=== PATIENT | female | born 1970 | race Caucasian/White ===

== ENCOUNTER 2018-07-07 17:24 | Observation (INO) | payer BC, OTHER ==
[2018-07-07] MEDS ORDERED: fentaNYL 100 MCG/2 ML VIAL IVP STA ×3 (17:45→22:03)
[2018-07-07] MEDS ORDERED: ONDANSETRON 4 MG/2 ML VIAL IVP STA ×2 (17:46→20:11)
[2018-07-07] MEDS ORDERED: SODIUM CHLORIDE 0.9% 1,000 ML IV ONE ×2 (17:47→22:30)
--- NOTE | 2018-07-07 17:51 | ED Physician Documentation ---
PD HPI ABD PAIN - Stated complaint Stated Complaint: AB PX - Chief complaint Chief Complaint: Abd Pain - History obtained from History obtained from: Patient, Family - History of Present Illness Timing - onset: How many months ago (1) Timing - duration: Months (1) Timing - details: Gradual onset Pain level max: 8 Pain level now: 8 Quality: Cramping, Aching, Pain Location: Other (lower abdominal pain) Radiation: Other (non-radiating) Improved by: Other (nothing) Worsened by: Moving, Palpation Associated symptoms: Nausea. No: Vomiting, Hematemesis, Diarrhea, Constipation, Melena, Hematochezia, Dysuria, Hematuria, Vaginal bleeding, Vaginal dc Similar symptoms before: Has not had sx before Recently seen: Clinic (clinic in [place] yesterday. normal blood work.) Review of Systems Ten Systems: 10 systems reviewed and negative Constitutional: denies: Fever, Chills Throat: denies: Sore throat Respiratory: denies: Cough GI: denies: Nausea, Vomiting, Diarrhea : denies: Dysuria Skin: denies: Rash Musculoskeletal: denies: Neck pain, Back pain Neurologic: reports: Generalized weakness. denies: Headache PD PAST MEDICAL HISTORY - Past Medical History Past Medical History: No - Past Surgical History Past Surgical History: Yes General: Appendectomy - Allergies Allergies/Adverse Reactions: Allergies Allergy/AdvReac Type Severity Reaction Status Date / Time acetaminophen [From Percocet] Allergy Rash Verified 07/07/18 17:32 amoxicillin Allergy Rash Verified 07/07/18 17:32 clindamycin Allergy Rash Verified 07/07/18 17:32 diphenhydramine Allergy Hives Verified 07/07/18 17:32 [From Benadryl] oxycodone [From Percocet] Allergy Rash Verified 07/07/18 17:32 Penicillins Allergy Rash Verified 07/07/18 17:32 - Living Situation Living Situation: reports: With family Living Arrangement: reports: At home - Social History Does the pt smoke?: No Does the pt have substance abuse?: No PD ED PE NORMAL - Vitals Vital signs reviewed: Yes - General General: Alert and oriented X 3, Well developed/nourished, Other (Curled on her left side, appears in pain) - HEENT HEENT: PERRL, Moist mucous membranes - Neck Neck: Supple, no meningeal sign - Cardiac Cardiac: RRR, Strong equal pulses - Respiratory Respiratory: No respiratory distress, Clear bilaterally - Abdomen Abdomen: Soft, Non distended, Other (Diffusely tender palpation lower abdomen) - Back Back: No spinal TTP - Derm Derm: Warm and dry - Extremities Extremities: No edema - Neuro Neuro: Alert and oriented X 3 - Psych Psych: Normal mood, Normal affect Results - Vitals Vitals: Vital Signs - 24 hr 07/07/18 07/07/18 07/07/18 17:32 17:55 19:00 Temperature 36.8 C Heart Rate 68 61 59 L Respiratory 16 16 18 Rate Blood Pressure 107/65 103/56 L 109/63 O2 Saturation 100 100 100 07/07/18 07/07/18 20:20 22:11 Temperature Heart Rate 61 57 L Respiratory 16 18 Rate Blood Pressure 95/54 L 98/44 L O2 Saturation 100 100 Oxygen O2 Source Room air - Labs Labs: Laboratory Tests 07/07/18 07/07/18 07/07/18 17:45 17:45 17:45 WBC 8.1 RBC 4.30 Hgb 13.4 Hct 39.9 MCV 92.8 MCH 31.1 H MCHC 33.5 RDW 13.8 Plt Count 206 MPV 9.0 Neut # (Auto) 4.8 Lymph # (Auto) 2.6 [place] # (Auto) 0.5 Eos # (Auto) 0.1 Baso # (Auto) 0.1 Absolute Nucleated RBC 0.01 Nucleated RBC % 0.1 Sodium 137 Potassium 4.1 Chloride 103 Carbon Dioxide 28 Anion Gap 6.0 BUN 15 Creatinine 0.9 Estimated GFR (MDRD) 67 L Glucose 93 Calcium 9.1 Total Bilirubin 0.6 AST 23 ALT 17 Alkaline Phosphatase 35 L Total Protein 5.9 L Albumin 3.7 Globulin 2.2 Albumin/Globulin Ratio 1.7 Lipase 45 Serum HCG, Qual NEGATIVE Urine Color Urine Clarity Urine pH Ur Specific [place] Urine Protein Urine Glucose (UA) Urine Ketones Urine Occult Blood Urine Nitrite Urine Bilirubin Urine Urobilinogen Ur Leukocyte Esterase Urine RBC Urine WBC Ur Squamous Epith Cells Urine Bacteria Ur Microscopic Review Urine Culture Comments 07/07/18 07/07/18 18:50 20:59 WBC RBC Hgb 12.4 Hct 37.1 MCV MCH MCHC RDW Plt Count MPV Neut # (Auto) Lymph # (Auto) [place] # (Auto) Eos # (Auto) Baso # (Auto) Absolute Nucleated RBC Nucleated RBC % Sodium Potassium Chloride Carbon Dioxide Anion Gap BUN Creatinine Estimated GFR (MDRD) Glucose Calcium Total Bilirubin AST ALT Alkaline Phosphatase Total Protein Albumin Globulin Albumin/Globulin Ratio Lipase Serum HCG, Qual Urine Color YELLOW Urine Clarity CLEAR Urine pH 7.0 Ur Specific [place] <=1.005 Urine Protein NEGATIVE Urine Glucose (UA) NEGATIVE Urine Ketones NEGATIVE Urine Occult Blood NEGATIVE Urine Nitrite NEGATIVE Urine Bilirubin NEGATIVE Urine Urobilinogen 0.2 (NORMAL) Ur Leukocyte Esterase SMALL H Urine RBC 0-5 Urine WBC 11-25 H Ur Squamous Epith Cells FEW Squamous Urine Bacteria Many H Ur Microscopic Review INDICATED Urine Culture Comments INDICATED - Rads (name of study) CT abd/pelvis Radiology: Prelim report reviewed, EMP read contemporaneously, See rad report (Small hemoperitoneum seen in the posterior cul-de-sac and bilateral adnexal regions. This could be from a ruptured ovarian cyst. Correlate clinically. Dominant follicle in the left ovary measuring 1.5 cm. ) pelvic US Radiology: Prelim report reviewed, EMP read contemporaneously, See rad report (1.5 cm hemorrhagic left ovarian cyst. Small amount of complex fluid in the cul-de-sac. Arterial and venous blood flow are present to the ovaries bilaterally. ) PD MEDICAL DECISION MAKING - ED course Complexity details: reviewed results, re-evaluated patient, considered differential, d/w patient, d/w family, d/w [facility] consultant ED course: 47-year-old female presents to the emergency department with a hemorrhagic ovarian cyst and hemoperitoneum. Hemoglobin dropped from 13.4 to 12.4 on repeat blood draw. A gram of tranexamic acid was given. Pain was very difficult to control in the emergency department. Discussed the case with Dr. Noble, gynecology on-call who will place the patient observation for repeat H&H in the morning and pain control overnight. This document was made in part using voice recognition software. While efforts are made to proofread this document, sound alike and grammatical errors may occur. Departure - Departure Disposition: ED Place in Observation Clinical Impression: Hemorrhagic cyst of left ovary, Hemoperitoneum Condition: Stable
[2018-07-07] MEDS ORDERED: IOPAMIDOL-300 100 ML VIAL ONE (17:55)
[2018-07-07 17:58] LABS: BASOPHILS # (AUTO) 0.1 10^3/uL (0.0-0.1); BASOPHILS % (AUTO) 0.7 %; EOSINOPHILS # (AUTO) 0.1 10^3/uL (0.0-0.7); EOSINOPHILS % (AUTO) 1.6 %; HGB - HEMOGLOBIN 13.4 g/dL (12.0-16.0); LYMPHOCYTES # (AUTO) 2.6 10^3/uL (1.5-3.5); LYMPHOCYTES % (AUTO) 32.1 %; MEAN CORPUSCULAR HEMOGLOBIN 31.1 pg (27.0-31.0); MEAN CORPUSCULAR HGB CONC 33.5 g/dL (32.0-36.0); MEAN CORPUSCULAR VOLUME 92.8 fL (81.0-99.0); MONOCYTES # (AUTO) 0.5 10^3/uL (0.0-1.0); MONOCYTES % (AUTO) 6.6 %; NEUTROPHILS # (AUTO) 4.8 10^3/uL (1.5-6.6); PLT - PLATELET COUNT 206 10^3/uL (130-450); RED CELL DISTRIBUTION WIDTH 13.8 % (12.0-15.0); WHITE BLOOD COUNT 8.1 x10^3/uL (4.8-10.8)
[2018-07-07] MEDS ORDERED: LIDOCAINE 1% 2 ML VIAL ONE (18:00)
[2018-07-07 18:09] LABS: ALBUMIN 3.7 g/dL (3.2-5.5); ALBUMIN/GLOBULIN RATIO 1.7 (1.0-2.2); BILIRUBIN,TOTAL 0.6 mg/dL (0.2-1.0); CALCIUM 9.1 mg/dL (8.5-10.3); CREATININE 0.9 mg/dL (0.4-1.0); TOTAL PROTEIN 5.9 g/dL (6.7-8.2)
[2018-07-07 18:33] LABS: HCG,QUALITATIVE BLOOD NEGATIVE
[2018-07-07 18:55] LABS: BILIRUBIN,URINE NEGATIVE (NEGATIVE); GLUCOSE, URINE (UA) NEGATIVE (NEGATIVE); KETONES,URINE (UA) NEGATIVE (NEGATIVE); LEUKOCYTE ESTERASE, URINE SMALL (NEGATIVE); NITRITE,URINE NEGATIVE (NEGATIVE); OCCULT BLOOD,URINE NEGATIVE (NEGATIVE); PROTEIN,URINE NEGATIVE (NEGATIVE); UROBILINOGEN,URINE 0.2 (NORMAL) E.U./dL (NORMAL)
[2018-07-07 19:02] LABS: CLARITY,URINE CLEAR (CLEAR)
[2018-07-07 19:08] LABS: BACTERIA,URINE Many /HPF (None Seen); RBC,URINE 0-5 /HPF (0-5); SQUAMOUS EPITHELIAL CELL,UR FEW Squamous (<= Few)
--- NOTE | 2018-07-07 19:21 | CT Report ---
Reason: lower abd pain Procedure Date: 07/07/2018 Accession Number: [id number] / [id number] Procedure: CT - Abdomen/Pelvis W CPT Code: FULL RESULT: EXAM: CT ABDOMEN AND PELVIS EXAM DATE: 07/07/2018 06:28 PM. CLINICAL HISTORY: Lower abdominal pain. COMPARISONS: None. TECHNIQUE: Routine helical CT imaging was performed through the abdomen and pelvis. IV contrast: ISOVUE 300 100mL. Enteric contrast: No. Reconstructions: Coronal and sagittal. In accordance with CT protocol optimization, one or more of the following dose reduction techniques were utilized for this exam: automated exposure control, adjustment of mA and/or KV based on patient size, or use of iterative reconstructive technique. FINDINGS: Lung Bases: Unremarkable. Liver: Mild lobular contour. No focal liver lesions seen. Gallbladder/Bile Ducts: Unremarkable. Spleen: Normal. Pancreas: Normal. Adrenal Glands: Normal. Kidneys: Normal. No masses or hydronephrosis. Peritoneal Cavity/Bowel: Normal. No free fluid, free air or adenopathy. No masses or acute inflammatory process. The appendix is not seen. Pelvic Organs: Small hemoperitoneum seen in the posterior cul-de-sac and bilateral adnexal regions. This could be from a ruptured ovarian cyst. Correlate clinically. Dominant follicle in the left ovary measuring 1.5 cm. Uterus and bladder appear unremarkable. Vasculature: No aneurysms or other significant abnormality. Bones: No acute bone findings. IMPRESSION: 1. Small hemoperitoneum seen in the posterior cul-de-sac and bilateral adnexal regions. This could be from a ruptured ovarian cyst. Correlate clinically. Dominant follicle in the left ovary measuring 1.5 cm. 2. See above. RADIA
[2018-07-07] MEDS ORDERED: TRANEXAMIC ACID 1,000 MG in SODIUM CHLORIDE 0.9% 100ML 100 ML IV STA (19:53)
[2018-07-07] MEDS ORDERED: HYDROmorphone 1 MG/ML CARPUJECT IVP STA (19:53)
[2018-07-07] MEDS ORDERED: NITROFURANTOIN MACRO 100 MG CAPSULE PO STA (20:34)
[2018-07-07] MEDS ORDERED: PROMETHAZINE INJ 25 MG in SODIUM CHLORIDE 0.9% 50 ML IV STA (21:08)
[2018-07-07 21:13] LABS: HGB - HEMOGLOBIN 12.4 g/dL (12.0-16.0)
--- NOTE | 2018-07-07 22:12 | Ultrasound Report ---
Reason: pelvic pain, L Procedure Date: 07/07/2018 Accession Number: [id number] / [id number] Procedure: US - Pelvic w/Transvag+Doppler Comp CPT Code: FULL RESULT: EXAM: PELVIC ULTRASOUND WITH DOPPLERS CLINICAL HISTORY: Pelvic pain, L. COMPARISON: None. TECHNIQUE: Realtime transabdominal imaging performed to identify the uterus and adnexa and as an overview of other pelvic structures, followed by transvaginal imaging for better assessment of the endometrium and adnexa, with static image documentation. Color flow imaging and Doppler spectral analysis was performed to evaluate blood flow to the ovaries given pelvic pain and clinical concern for ovarian torsion. FINDINGS: Uterus: 8.1 x 4.7 x 4.2 cm, volume 84 cc. Anteverted position. Normal overall size and echotexture. Masses: None. Endometrium: 8 mm. Normal. Cervix: Unremarkable. Right Ovary: 3.5 x 2.3 x 2.2 cm, volume 9 cc. Normal echotexture. Arterial and venous blood flow are present. PSV 22 cm/sec. RI 0.65. Adnexa are unremarkable. Left Ovary: 3.5 x 2.6 x 2.0 cm, volume 10 cc. 1.5 cm hemorrhagic cyst. Arterial and venous blood flow are present. PSV 22 cm/sec. RI 0.75. Adnexa are unremarkable. Free Fluid: Small amount of fluid with low-level echoes in the cul-de-sac. Other: None. IMPRESSION: 1. 1.5 cm hemorrhagic left ovarian cyst. Small amount of complex fluid in the cul-de-sac. 2. Arterial and venous blood flow are present to the ovaries bilaterally. RADIA
[2018-07-07] MEDS ORDERED: SODIUM CHLORIDE FLUSH 0.9% 10 ML SYRINGE IVP PRN (22:59)
[2018-07-07] MEDS ORDERED: ACETAMINOPHEN 325 MG TABLET PO PRN (22:59)
[2018-07-07] MEDS ORDERED: HYDROcod/ACETAM 7.5 MG/325 MG TABLET PO PRN (23:06)
[2018-07-07] MEDS: fentaNYL 100 MCG/2 ML VIAL IVP PRN (23:31)
[2018-07-07] MEDS ORDERED: KETOROLAC 30 MG/ML VIAL IVP STA (23:32)
[2018-07-08] MEDS: LACTATED RINGERS 1,000 ML IV SCH ×2 (00:59→10:04)
[2018-07-08] MEDS: fentaNYL 100 MCG/2 ML VIAL IVP PRN ×7 (01:00→19:31)
[2018-07-08] MEDS: SODIUM CHLORIDE FLUSH 0.9% 10 ML SYRINGE IVP SCH ×3 (01:00→16:53)
[2018-07-08] MEDS ORDERED: PROMETHAZINE INJ 25 MG in SODIUM CHLORIDE 0.9% 50 ML IV PRN (01:37)
[2018-07-08] MEDS ORDERED: CETIRIZINE 10 MG TABLET ONE (05:31)
[2018-07-08 06:05] LABS: MEAN CORPUSCULAR VOLUME 93.9 fL (81.0-99.0); MEAN PLATELET VOLUME 9.5 fL (7.9-10.8); RED BLOOD COUNT 3.87 10^6/uL (4.20-5.40); RED CELL DISTRIBUTION WIDTH 13.9 % (12.0-15.0); WHITE BLOOD COUNT 5.8 x10^3/uL (4.8-10.8)
[2018-07-08] MEDS ORDERED: KETOROLAC 0.45% OPHTH DROPS EACHEYE PRN (06:29)
--- NOTE | 2018-07-08 08:34 | ANESTHESIA ---
Pre-Anesthesia VS, & Labs - Diagnosis Ruptured ovarian cyst - Procedure Diagnostic laparoscopy w/ovarian cystectomy Vital Signs: Temp Pulse Resp BP Pulse Ox 36.8 C 60 17 101/39 L 100 07/08/18 07:30 07/08/18 07:56 07/08/18 07:30 07/08/18 07:56 07/08/18 07:30 Height 5 ft 4 in Weight (kg) 72.348 kg Body Mass Index 27.3 - NPO >8 hours - Is Patient ?: No - Lab Results Current Lab Results: Laboratory Tests 07/08/18 05:57: WBC 5.8, RBC 3.87 L, Hgb 12.0, Hct 36.4 L, MCV 93.9, MCH 31.0, MCHC 33.0, RDW 13.9, Plt Count 181, MPV 9.5 07/07/18 20:59: Hgb 12.4, Hct 37.1 07/07/18 17:45: Serum HCG, Qual NEGATIVE 07/07/18 17:45: Sodium 137, Potassium 4.1, Chloride 103, Carbon Dioxide 28, Anion Gap 6.0, BUN 15, Creatinine 0.9, Estimated GFR (MDRD) 67 L, Glucose 93, Calcium 9.1, Total Bilirubin 0.6, AST 23, ALT 17, Alkaline Phosphatase 35 L, Total Protein 5.9 L, Albumin 3.7, Globulin 2.2, Albumin/Globulin Ratio 1.7, Lipase 45 07/07/18 17:45: WBC 8.1, RBC 4.30, Hgb 13.4, Hct 39.9, MCV 92.8, MCH 31.1 H, MCHC 33.5, RDW 13.8, Plt Count 206, MPV 9.0, Neut # (Auto) 4.8, Lymph # (Auto) 2.6, [place] # (Auto) 0.5, Eos # (Auto) 0.1, Baso # (Auto) 0.1, Absolute Nucleated RBC 0.01, Nucleated RBC % 0.1 Lab results reviewed: Yes Fish Bones: 07/08/18 05:57 07/07/18 17:45 Home Medications and Allergies Active Medications Cetirizine HCl (Zyrtec) 10 mg PO DAILY ZAC Last Admin: 07/08/18 05:31 Dose: 10 mg Fentanyl (Fentanyl) 50 mcg IVP Q2H PRN PRN Reason: PAIN Last Admin: 07/08/18 07:33 Dose: 50 mcg Lactated Ringer's (Lr) 1,000 mls @ 100 mls/hr IV .Q10H ZAC Last Admin: 07/08/18 00:59 Dose: 100 mls/hr Promethazine HCl 25 mg/ Sodium (Chloride) 51 mls @ 100 mls/hr IV Q6H PRN PRN Reason: Nausea / Vomiting Ketorolac Tromethamine (Acuvail) 1 drops EACHEYE Q6H PRN PRN Reason: PAIN Polyethylene Glycol (Miralax) 17 gm PO DAILY [facility] Sodium Chloride (Normal Saline Flush 0.9%) 10 ml IVP PRN PRN PRN Reason: NEEDED PER PROVIDER ORDERS Sodium Chloride (Normal Saline Flush 0.9%) 10 ml IVP 0100,0900,1700 [facility] Last Admin: 07/08/18 01:00 Dose: 10 ml Allergies/Adverse Reactions: Allergies Allergy/AdvReac Type Severity Reaction Status Date / Time acetaminophen [From Percocet] Allergy Rash Verified 07/07/18 17:32 amoxicillin Allergy Rash Verified 07/07/18 17:32 clindamycin Allergy Rash Verified 07/07/18 17:32 diphenhydramine Allergy Hives Verified 07/07/18 17:32 [From Benadryl] oxycodone [From Percocet] Allergy Rash Verified 07/07/18 17:32 Penicillins Allergy Rash Verified 07/07/18 17:32 Anes History & Medical History - Anesthetic History Anesthesia Complications: reports: No previous complications Family history of Anesthesia Complications: Denies Family history of Malignant Hyperthermia: Denies - Medical History Cardiovascular: reports: None Pulmonary: reports: None Gastrointestinal: reports: None Urinary: reports: None Neuro: reports: None Musculoskeletal: reports: None Endocrine/Autoimmune: reports: None Blood Disorders: reports: None Skin: reports: None Smoking Status: Never smoker Other Past Medical History: alleries affecting eyes - Surgical History General: Appendectomy Exam General: Alert, Oriented x3 Dental: WNL Mouth Openin Fingerbreadth Neck Mobility: Normal Mallampati classification: II Thyromental Distance: 4-6 cm Respiratory: Lungs clear, Normal breath sounds, No respiratory distress Cardiovascular: Regular rate Neurological: Normal speech Mental/Cognitive Status: Alert/Oriented X3, Normal for patient Plan Anesthesia Type: General Consent for Procedure(s) Verified and Reviewed: Yes Code Status: Attempt Resuscitation ASA classification: 2-Mild systemic disease Is this case an emergency?: Yes
[2018-07-08] MEDS ORDERED: fentaNYL 100 MCG/2 ML VIAL IVP PRN (08:38)
[2018-07-08] MEDS ORDERED: LACTATED RINGERS 1,000 ML IV ONE ×3 (08:45→11:12)
[2018-07-08] MEDS ORDERED: CETIRIZINE 10 MG TABLET PO SCH (09:00)
[2018-07-08] MEDS ORDERED: KETOROLAC 0.45% OPHTH DROPS EACHEYE SCH (09:00)
[2018-07-08] MEDS ORDERED: POLYETHYLENE GLYCOL 3350 17 GM PACKET PO SCH (09:00)
[2018-07-08] MEDS ORDERED: BUPIVACAINE 0.25%-EPI 1:200000 PF 30 ML VIAL ONE (10:01)
[2018-07-08] MEDS ORDERED: BUPIVACAINE 0.25%-EPI 1:200000 PF 30 ML VIAL SUBQ ONE ×2 (11:19)
[2018-07-08] MEDS ORDERED: LIDOCAINE-MPF 2% 5 ML VIAL IM ONE ×2 (11:30)
[2018-07-08] MEDS ORDERED: MIDAZOLAM 2 MG/2 ML VIAL IVP ONE ×2 (11:30)
[2018-07-08] MEDS ORDERED: GLYCOPYRROLATE 1 MG/5 ML VIAL IVP ONE ×2 (11:30)
[2018-07-08] MEDS ORDERED: ONDANSETRON 4 MG/2 ML VIAL IVP ONE ×2 (11:30)
[2018-07-08] MEDS ORDERED: NEOSTIGMINE 1 MG/1 ML 10 ML MDV IVP ONE ×2 (11:30)
[2018-07-08] MEDS ORDERED: ePHEDrine 50 MG/ML VIAL IVP ONE ×2 (11:30)
[2018-07-08] MEDS ORDERED: fentaNYL 250 MCG/5 ML VIAL IVP ONE ×2 (11:30)
[2018-07-08] MEDS ORDERED: PHENYLEPHRINE 50 MG/5 ML VIAL IV ONE ×2 (11:30)
[2018-07-08] MEDS ORDERED: PROPOFOL 200 MG/20 ML VIAL IVP ONE ×2 (11:30)
[2018-07-08] MEDS ORDERED: ROCURONIUM 50 MG/5 ML VIAL IVP ONE ×2 (11:30)
[2018-07-08] MEDS ORDERED: ACETAMINOPHEN 1,000 MG/100 ML 100 ML IV ONE ×2 (11:30)
[2018-07-08] MEDS ORDERED: ONDANSETRON 4 MG/2 ML VIAL IVP PRN (12:27)
[2018-07-08] MEDS ORDERED: HYDROmorphone 2 MG TABLET PO PRN (12:35)
[2018-07-08] MEDS: LORazepam 2 MG/ML VIAL IVP PRN ×2 (12:45→18:23)
[2018-07-08] MEDS ORDERED: LORazepam 2 MG/ML VIAL ONE (12:46)
[2018-07-08] MEDS ORDERED: fentaNYL 100 MCG/2 ML VIAL ONE (12:55)
--- NOTE | 2018-07-08 12:59 | OPERATIVE REPORT ---
Operative Report - General Admit Date: 07/07/18 Procedure Date: 07/08/18 Planned Procedure: Diagnostic Laposcopy Pre-Op Diagnosis: Hemoperitomeum, left corpus hemoragicum Procedure Performed: Diagnostic Laproscopy with cautery of left corpus hemorragicum, peritoneal lavage. Post Op Diagnosis: Same - Procedure Note Primary Surgeon: Jaycob Noble MD Anesthesia Technique: General ET tube Pathology: None IV Fluids (mL): 800 Estimated Blood Loss (mL): 5 Urine Output (mL): 200 - Other Other Information/Narrative: [id number]
--- NOTE | 2018-07-08 13:48 | OPERATIVE REPORT ---
DATE OF SERVICE: 07/08/2018 Physician: Jaycob Noble MD PREOPERATIVE DIAGNOSIS: Hemoperitoneum, left corpus hemorrhagicum. POSTOPERATIVE DIAGNOSIS: Hemoperitoneum, left corpus hemorrhagicum. PROCEDURE PERFORMED: Diagnostic laparoscopy with cautery of left ovarian cyst and peritoneal lavage. SURGEON: Jaycob Noble MD ANESTHESIA: Gerard Gilliam CRNA ANESTHETIC TECHNIQUE: General via endotracheal tube. IV FLUIDS: 800 mL. URINE OUT: 200 mL. ESTIMATED BLOOD LOSS: Less than 5 mL. FINDINGS: Roughly 200 mL of blood in the abdominal cavity. There was also blood smeared over the omentum as well as blood in the cul-de-sac. There was active bleeding coming from the left ovary from a corpus hemorrhagicum. DESCRIPTION OF PROCEDURE: Following adequate endotracheal anesthesia, patient was placed supine. A Saavedra catheter was then placed. She was then prepped and draped in the usual fashion. At this point, a timeout was performed in which patient was identified and concerns addressed. She lists an ALLERGY TO TYLENOL; however, she takes Tylenol regularly at home and this is because of an ALLERGY LISTED TO PERCOCET. She also has a PENICILLIN ALLERGY, so a test dose of Ancef was given prior to giving 2 grams. At this point, the procedure was commenced. A subumbilical injection with 0.25% Marcaine with epinephrine was accomplished and then an incision with a 15 blade and then a 5 mm trocar was placed under direct visualization. The abdominal cavity was insufflated following assuring that it was entered there. Ports were placed both in the right and lower quadrants following local anesthesia with 0.25% Marcaine with epinephrine as well as an incision with a 15 blade. The abdominal cavity showed evidence of a smear of blood over the omentum throughout. The pelvis was inspected and there was blood in the cul-de-sac as well as over the uterus. Upon closer inspection, the left ovary and fossa showed a small band of adhesions and there was actually blood that was coming from a corpus hemorrhagicum that was dripping at this time. A clot was attached. This was irrigated free and then the edges were cauterized utilizing a LigaSure. At this point, this was inspected. No further bleeding was noted. The right tube and ovaries were inspected and noted to be normal. The appendix was surgically absent. There was no evidence of any adhesions throughout the remainder of the pelvis. The peritoneal cavity was then lavaged with roughly 2 L of normal saline and this was sucked out following placing the patient in reverse Trendelenburg and then Trendelenburg. The fluid was removed. The ovary was reinspected. No bleeding was noted. At this point, the procedure was ended. The trocars in the left and right lower quadrants were removed under direct visualization. There was no evidence of any bleeding. At this point, the patient was taken to recovery in stable condition. Sponge and needle counts were correct. TD: 07/08/2018 13:12 MTDJohanna
[2018-07-08 18:01] VITALS: BP 89/44
[2018-07-08] MEDS ORDERED: HYDROcod/ACET 5/325 Prepack 4 PO STA (20:47)
--- NOTE | 2018-07-15 11:07 | PREOP HISTORY & PHYSICAL ---
DATE OF SERVICE: 07/08/2018 Physician: Jaycob Noble MD This is retrieved from progress note which was written on 07/08 at 8:56. PATIENT IDENTIFICATION: Patient is a 47-year-old G3, P3 female whose last menstrual period was 03/03/2018. CHIEF COMPLAINT: Abdominal pain. HISTORY OF PRESENT ILLNESS: Patient states that she is feels as though she has ovulated. She developed breast tenderness last evening. She also complains of bloating. She was seen in the ED at which time she was evaluated and ultrasound showed evidence of fluid in the cul-de-sac as well as a 1.5 cm cyst on the left ovary. Their suspicion was that she had a ruptured corpus hemorrhagicum. She was observed overnight, and as well was given 1 gram of tranexamic acid. She was given IV fluids. Her pain was noted to be of roughly 5/10. Over the course of the evening, she developed difficulty with some hypotension. PAST MEDICAL HISTORY: CMV. PAST SURGICAL HISTORY: Appendectomy. ALLERGIES 1. PENICILLIN. 2. CLINDAMYCIN. 3. BENADRYL. 4. OXYCODONE. HABITS: Patient denies use of alcohol, tobacco, or street or addictive drugs. SOCIAL HISTORY: Patient is and lives with spouse. She works at [employer]. PHYSICAL EXAMINATION GENERAL: Patient is a well-developed, well-nourished white female. She is in mild distress at this time. VITAL SIGNS: Blood pressures have been running in the 83s over 101 on the diastolics of 39-51, pulse has been running 59-64, respirations 14-17, temp 36.8. HEENT: Pupils are equal, round. Extraocular muscles are intact. Thyroid is not palpably enlarged. HEART: Regular rate and rhythm without murmurs. LUNGS: Lung cruz are clear without rales or wheezes. BACK: No spine or CVA tenderness noted. ABDOMEN: Bowel sounds. There is tenderness in the lower portions of the abdomen. This shows mild rebound. LABORATORY/DATA A repeat CBC showed a white count of 8.1, her hemoglobin went from 13.4 to 12, her platelets essentially remained stable. CMP was noted to be within normal limits. Ultrasound shows a small cyst on the left hand side, which is felt to be a hemorrhagic cyst. CAT scan shows identical findings. ASSESSMENT AND PLAN: A 48-year-old female with ovulation and probable ovarian cyst. Currently at this point, my assessment is that she has continued to have bleeding into the abdominal cavity. I also believe she has hemoperitoneum. PLAN: We will perform diagnostic laparoscopy. The possibility of having to do an oophorectomy was presented to the patient. Risks and benefits were explained to the patient, including those but not limited to, bleeding, infection, injury to pelvic organs which include the uterus, tubes, ovaries, bowel, bladder, and ureters. She is aware of the potential for DVT with PE as well as postop adhesions, which could cause pain. TD: 07/15/2018 10:49 BALDEMAR
== END 2018-07-08 20:38 | disposition home or self-care (01) ==
LOC: ED 17:24 → OBS 22:59
PROVIDERS: ADMIT Obstetrics & Gynecology; ATTEND Obstetrics & Gynecology
PROC: 0W3J4ZZ Control Bleeding in Pelvic Cavity, Percutaneous Endoscopic Approach (ICD-10-PCS; principal; 2018-07-07)
PROC: 3E1M38Z Irrigation of Peritoneal Cavity using Irrigating Substance, Percutaneous Approach (ICD-10-PCS; 2018-07-07)
DX: K66.1 Hemoperitoneum (principal); N83.12 Corpus luteum cyst of left ovary; I95.9 Hypotension, unspecified
CPT/HCPCS: 36415; 58662; 74177; 76830; 76856; 80053; 81001; 83690; 84703; 85014; 85018; 85025; 85027; 87086; 87181; 93975; 96361; 96365; 96367; 96375; 96376; 99284; A9270; G0378; J0131; J1170; J2060; J3010; J7040; J7120; Q9967; 81003

== ENCOUNTER 2018-07-14 16:47 | Emergency (ER) | payer BC ==
[2018-07-14] MEDS ORDERED: fentaNYL 100 MCG/2 ML VIAL IVP STA ×3 (17:13→21:33)
[2018-07-14] MEDS ORDERED: PROMETHAZINE INJ 25 MG in SODIUM CHLORIDE 0.9% 50 ML IV STA (17:13)
[2018-07-14] MEDS ORDERED: SODIUM CHLORIDE 0.9% 1,000 ML IV ONE ×2 (17:13→21:09)
[2018-07-14 17:14] LABS: BILIRUBIN,URINE NEGATIVE (NEGATIVE); GLUCOSE, URINE (UA) NEGATIVE (NEGATIVE); KETONES,URINE (UA) NEGATIVE (NEGATIVE); LEUKOCYTE ESTERASE, URINE NEGATIVE (NEGATIVE); NITRITE,URINE NEGATIVE (NEGATIVE); OCCULT BLOOD,URINE NEGATIVE (NEGATIVE); PROTEIN,URINE NEGATIVE (NEGATIVE); UROBILINOGEN,URINE 0.2 (NORMAL) E.U./dL (NORMAL)
[2018-07-14 17:15] LABS: CLARITY,URINE CLEAR (CLEAR)
--- NOTE | 2018-07-14 17:15 | ED Physician Documentation ---
PD HPI ABD PAIN - Stated complaint Stated Complaint: P/O ABD PX - Chief complaint Chief Complaint: Abd Pain - Additional information Additional information: 48-year-old female presents the emergency department with severe lower abdominal pain which has progressively worsened. The patient is status post a laparoscopic drainage of a ovarian cyst. The patient has had ongoing pain since the procedure and tonight her symptoms are more severe. No relief with medications at home. Positive for nausea. No clear triggering factors. Review of Systems Constitutional: denies: Fever, Chills Eyes: denies: Discharge Ears: denies: Ear pain Nose: denies: Rhinorrhea / runny nose, Congestion Throat: denies: Sore throat Cardiac: denies: Chest pain / pressure Respiratory: denies: Cough GI: reports: Abdominal Pain, Nausea. 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 - Present Medications Home Medications: Ambulatory Orders Medication Instructions Recorded Confirmed Polyethylene Glycol 3350 [Miralax] 17 gm PO DAILY PRN #1 bottle 07/14/18 Promethazine [Phenergan] 25 mg PO Q6H PRN #30 tab 07/14/18 traMADol [Ultram] 50 mg PO Q6H PRN #30 tablet 07/14/18 - Allergies Allergies/Adverse Reactions: Allergies Allergy/AdvReac Type Severity Reaction Status Date / Time amoxicillin Allergy Rash Verified 07/07/18 17:32 clindamycin Allergy Rash Verified 07/07/18 17:32 diphenhydramine Allergy Hives Verified 07/07/18 17:32 [From Benadryl] oxycodone [From Percocet] Allergy Rash Verified 07/07/18 17:32 Penicillins Allergy Rash Verified 07/07/18 17:32 - Social History Does the pt smoke?: No Smoking Status: Never smoker Does the pt drink ETOH?: No Does the pt have substance abuse?: No - Immunizations Immunizations are current?: Yes - POLST Patient has POLST: No PD ED PE NORMAL - General General: Alert and oriented X 3, Other (The patient appears to be) - HEENT HEENT: Atraumatic, PERRL, EOMI, Ears normal, Moist mucous membranes ( trouble), Pharynx benign - Neck Neck: Supple, no meningeal sign - Cardiac Cardiac: RRR, Strong equal pulses - Respiratory Respiratory: No respiratory distress - Abdomen Abdomen: Soft, Non distended, Other (The patient has significant tenderness, but no rebound or peritoneal signs) - Derm Derm: Normal color - Extremities Extremities: No deformity - Neuro Neuro: Alert and oriented X 3, Normal speech - Psych Psych: Normal mood Results - Vitals Vitals: Vital Signs - 24 hr 07/14/18 07/14/18 07/14/18 16:53 17:06 18:10 Temperature 36.4 C L Heart Rate 67 68 61 Respiratory 16 14 14 Rate Blood Pressure 126/65 110/77 130/77 O2 Saturation 100 100 90 L 07/14/18 07/14/18 07/14/18 19:10 20:53 20:55 Temperature 36.6 C 36.6 C Heart Rate 62 62 63 Respiratory 16 18 18 Rate Blood Pressure 119/74 119/76 122/72 O2 Saturation 100 100 100 07/14/18 07/14/18 07/14/18 21:29 21:34 21:43 Temperature Heart Rate 73 65 68 Respiratory 20 19 13 Rate Blood Pressure 122/72 111/46 L 111/46 L O2 Saturation 100 100 99 07/14/18 07/14/18 07/14/18 22:18 22:38 23:05 Temperature 36.7 C 36.5 C Heart Rate 60 58 L 58 L Respiratory 15 15 16 Rate Blood Pressure 114/69 107/65 102/63 O2 Saturation 100 98 98 Oxygen O2 Source Room air Oxygen Flow Rate 3 - Labs Labs: Laboratory Tests 07/14/18 07/14/18 07/14/18 17:00 17:48 17:48 WBC 10.2 RBC 4.36 Hgb 13.6 Hct 40.4 MCV 92.7 MCH 31.2 H MCHC 33.7 RDW 13.7 Plt Count 254 MPV 9.3 Neut # (Auto) 6.6 Lymph # (Auto) 2.7 [place] # (Auto) 0.6 Eos # (Auto) 0.1 Baso # (Auto) 0.1 Absolute Nucleated RBC 0.00 Nucleated RBC % 0.0 Sodium 138 Potassium 3.8 Chloride 104 Carbon Dioxide 27 Anion Gap 7.0 BUN 16 Creatinine 0.9 Estimated GFR (MDRD) 67 L Glucose 92 Calcium 9.4 Total Bilirubin 0.5 AST 67 H ALT 68 H Alkaline Phosphatase 45 Total Protein 6.6 L Albumin 4.1 Globulin 2.5 Albumin/Globulin Ratio 1.6 Lipase 36 Serum HCG, Qual Urine Color YELLOW Urine Clarity CLEAR Urine pH 8.0 H Ur Specific [place] 1.015 Urine Protein NEGATIVE Urine Glucose (UA) NEGATIVE Urine Ketones NEGATIVE Urine Occult Blood NEGATIVE Urine Nitrite NEGATIVE Urine Bilirubin NEGATIVE Urine Urobilinogen 0.2 (NORMAL) Ur Leukocyte Esterase NEGATIVE Ur Microscopic Review NOT INDICATED Urine Culture Comments NOT INDICATED 07/14/18 17:48 WBC RBC Hgb Hct MCV MCH MCHC RDW Plt Count MPV Neut # (Auto) Lymph # (Auto) [place] # (Auto) Eos # (Auto) Baso # (Auto) Absolute Nucleated RBC Nucleated RBC % Sodium Potassium Chloride Carbon Dioxide Anion Gap BUN Creatinine Estimated GFR (MDRD) Glucose Calcium Total Bilirubin AST ALT Alkaline Phosphatase Total Protein Albumin Globulin Albumin/Globulin Ratio Lipase Serum HCG, Qual NEGATIVE Urine Color Urine Clarity Urine pH Ur Specific [place] Urine Protein Urine Glucose (UA) Urine Ketones Urine Occult Blood Urine Nitrite Urine Bilirubin Urine Urobilinogen Ur Leukocyte Esterase Ur Microscopic Review Urine Culture Comments - Rads (name of study) US pelvis Radiology: Final report received, See rad report (IMPRESSION: Normal arterial and venous flow in both ovaries. Trace free fluid in the pelvis. no adnexal mass. No other significant finding. ) CT abd/pelvis Radiology: Final report received, See rad report (IMPRESSION: Essentially a normal CT abdomen and pelvis for the patient's age. Trace amount of free fluid in the pelvis could be physiologic or related to recent surgery.) PD MEDICAL DECISION MAKING - ED course ED course: The case was discussed with the patient's surgeon Dr. Noble who came and evaluated the patient the emergency department The patient was managed in the emergency department for her acute pain, her workup does not reveal any postoperative complication that would necessitate admission to the hospital or emergent surgery. On final evaluation the patient is resting comfortably and her symptoms appear to be under control. Presently, the patient appears appropriate for discharge with reevaluation as an outpatient. The patient will return to the emergency department immediately for any worsening or any concerns Departure - Departure Disposition: 01 Home, Self Care Clinical Impression: Abdominal pain Qualifiers: Abdominal location: unspecified location Qualified Code(s): R10.9 - Unspecified abdominal pain Condition: Good Instructions: ED Abdominal Pain Unkn Cause Follow-Up: Jaycob Noble MD [Primary Care Provider] - (as scheduled ) Prescriptions: Polyethylene Glycol 3350 [Miralax] 17 gm PO DAILY PRN #1 bottle PRN Reason: Constipation Promethazine [Phenergan] 25 mg PO Q6H PRN #30 tab PRN Reason: Nausea / Vomiting traMADol [Ultram] 50 mg PO Q6H PRN #30 tablet PRN Reason: Abdominal Pain Comments: Please return to the emergency department for worsening symptoms or any concerns
[2018-07-14] MEDS ORDERED: ACETAMINOPHEN 1,000 MG/100 ML 100 ML IV STA (17:17)
[2018-07-14] MEDS ORDERED: LIDOCAINE 1% 2 ML VIAL ONE (17:29)
[2018-07-14 17:55] LABS: BASOPHILS # (AUTO) 0.1 10^3/uL (0.0-0.1); BASOPHILS % (AUTO) 1.4 %; EOSINOPHILS # (AUTO) 0.1 10^3/uL (0.0-0.7); EOSINOPHILS % (AUTO) 1.1 %; HGB - HEMOGLOBIN 13.6 g/dL (12.0-16.0); LYMPHOCYTES # (AUTO) 2.7 10^3/uL (1.5-3.5); LYMPHOCYTES % (AUTO) 26.9 %; MEAN CORPUSCULAR HEMOGLOBIN 31.2 pg (27.0-31.0); MEAN CORPUSCULAR HGB CONC 33.7 g/dL (32.0-36.0); MEAN CORPUSCULAR VOLUME 92.7 fL (81.0-99.0); MEAN PLATELET VOLUME 9.3 fL (7.9-10.8); MONOCYTES # (AUTO) 0.6 10^3/uL (0.0-1.0); NEUTROPHILS # (AUTO) 6.6 10^3/uL (1.5-6.6); NEUTROPHILS % (AUTO) 64.6 %; PLT - PLATELET COUNT 254 10^3/uL (130-450); RED BLOOD COUNT 4.36 10^6/uL (4.20-5.40); RED CELL DISTRIBUTION WIDTH 13.7 % (12.0-15.0); WHITE BLOOD COUNT 10.2 x10^3/uL (4.8-10.8)
[2018-07-14 18:08] LABS: ALBUMIN 4.1 g/dL (3.2-5.5); ALBUMIN/GLOBULIN RATIO 1.6 (1.0-2.2); BILIRUBIN,TOTAL 0.5 mg/dL (0.2-1.0); CALCIUM 9.4 mg/dL (8.5-10.3); CREATININE 0.9 mg/dL (0.4-1.0); TOTAL PROTEIN 6.6 g/dL (6.7-8.2)
[2018-07-14 18:16] LABS: HCG,QUALITATIVE BLOOD NEGATIVE
[2018-07-14] MEDS ORDERED: KETOROLAC 15 MG/ML VIAL IVP STA ×2 (19:13→20:26)
--- NOTE | 2018-07-14 20:05 | Ultrasound Report ---
Reason: Increasing pelvic pain, status post recent laparos Procedure Date: 07/14/2018 Accession Number: [id number] / [id number] Procedure: US - Pelvic w/Transvag+Doppler Comp CPT Code: FULL RESULT: EXAM: PELVIC ULTRASOUND EXAM DATE: 07/14/2018 07:01 PM. CLINICAL HISTORY: Increasing pelvic pain, status post recent laparos. COMPARISON: PEL NON OB W/TV DOP 07/07/2018 8:58 PM. TECHNIQUE: Realtime transabdominal pelvic scan performed to identify the uterus and adnexa and as an overview of other pelvic structures, followed by transvaginal scan to provide greater detail of the uterus and adnexa, with static image documentation. FINDINGS: Uterus: 7.3 x 3.8 x 4.9 cm, volume 71.1 cc. Anteverted position. Normal overall size and echotexture. Masses: None. Endometrium: 6 mm. Normal. Cervix: Multiple nabothian cysts seen. Right Ovary: 2.2 x 2.0 x 2.7 cm, volume 6.2 cc. Normal echotexture and blood flow. Left Ovary: 2.5 x 1.3 x 2.4 cm, volume 4.1 cc. Normal echotexture and blood flow. Free Fluid: Trace fluid seen in the cul de sac. Other: None. IMPRESSION: Normal arterial and venous flow in both ovaries. Trace free fluid in the pelvis. no adnexal mass. No other significant finding. RADIA
[2018-07-14] MEDS ORDERED: ONDANSETRON 4 MG/2 ML VIAL IVP STA (20:28)
[2018-07-14] MEDS ORDERED: KETAMINE 500 MG/10 ML VIAL IVP STA (20:44)
[2018-07-14] MEDS ORDERED: LORazepam 2 MG/ML VIAL IVP STA (21:33)
[2018-07-14] MEDS ORDERED: IOPAMIDOL-300 100 ML VIAL ONE (21:58)
[2018-07-14] MEDS ORDERED: IOPAMIDOL-300 100 ML VIAL IVP ONE (22:23)
--- NOTE | 2018-07-14 22:48 | CT Report ---
Reason: Status post recent Lap procedure, increased pain Procedure Date: 07/14/2018 Accession Number: [id number] / [id number] Procedure: CT - Abdomen/Pelvis W CPT Code: FULL RESULT: EXAM: CT ABDOMEN AND PELVIS EXAM DATE: 07/14/2018 10:06 PM. CLINICAL HISTORY: Status post recent Lap procedure, increased pain. COMPARISONS: None.. TECHNIQUE: Routine helical CT imaging was performed through the abdomen and pelvis. IV contrast: 100 ML ISOVUE 300. Enteric contrast: No. Reconstructions: Coronal and sagittal. In accordance with CT protocol optimization, one or more of the following dose reduction techniques were utilized for this exam: automated exposure control, adjustment of mA and/or KV based on patient size, or use of iterative reconstructive technique. FINDINGS: Lung Bases: Unremarkable. Liver: Normal. No masses. Gallbladder/Bile Ducts: Unremarkable. Spleen: Normal. Pancreas: Normal. Adrenal Glands: Normal. Kidneys: Normal. No masses or hydronephrosis. Peritoneal Cavity/Bowel: Normal. No free air or adenopathy. No masses or acute inflammatory process. Appendix is not visualized. Pelvic Organs: Normal. The bladder and visualized pelvic organs are within normal limits. Trace amount of free fluid in the pelvis could be physiologic or from recent surgery. Vasculature: No aneurysms or other significant abnormality. Bones: No significant abnormality. Other: None. IMPRESSION: Essentially a normal CT abdomen and pelvis for the patient's age. Trace amount of free fluid in the pelvis could be physiologic or related to recent surgery. RADIA
[2018-07-14 23:07] VITALS: BP 102/63
--- NOTE | 2018-07-15 01:41 | PREOP HISTORY & PHYSICAL ---
DATE OF SERVICE: 07/14/2018 Physician: Jaycob Noble MD PATIENT IDENTIFICATION: Patient is a 48-year-old status post laparoscopic left ovarian cyst. CHIEF COMPLAINT: Acute onset abdominal pain. HISTORY OF PRESENT ILLNESS: Patient postoperatively did reasonably well. She utilized narcotics of Vicodin in the immediate postop period. She was doing well. She was passing flatus, moving her nikhil ls as well as voiding. She was taking a regular diet. She did complain of some abdominal bloating. On the way to the office, she developed acute onset abdominal pain, roughly 8/10. Because of lack o f diagnostic capabilities and labs done in a timely fashion, she was sent to the ED for evaluation. Since arriving here, she has required fentanyl for pain control. She is also complaining of diffuse abdominal pain. She had an episode of acute onset of epigastric pain, which has resolved spontaneous ly. She has received ketamine for pain control for which she had some dissociation prompt. She had received a very small dose of her ketamine. In the ED, she has had an ultrasound, which shows normal ovaries. She has normal-appearing uterus. She has a small amount of fluid in the pelvis. PAST MEDICAL HISTORY: The patient denies any hypertensive, diabetic, cardiac, or pulmonary disease. PAST SURGICAL HISTORY: Positive for appendectomy as well as a laparoscopic left ovarian cystectomy f or a hemorrhagic left ovarian cyst. ALLERGIES 1. PENICILLIN. 2. CLINDAMYCIN. 3. BENADRYL. 4. OXYCODONE. CURRENT MEDICATIONS: Vicodin as well as Motrin. She has received fentanyl as well as ketamine in e ED. PHYSICAL EXAMINATION VITAL SIGNS: Temperature is 36.6, pulse is running 62-67, blood pressure 110-126/65-77. GENERAL: She is complaining of upper abdominal pain, which is marked, but has resolved. HEART: Regular rate and rhythm without murmur. LUNGS: Lung cruz clear without rales or wheezes. ABDOMEN: Shows bowel sounds throughout. Her incisions from previous laparoscopic surgery are healin g well, without evidence of any erythema. She had an episode of epigastric pain, which was quite mar ked. She has some diffuse abdominal tenderness, but does not appear to have rebound at this time. BACK: No flank tenderness noted. LABORATORY DATA: Today, her white count is 10.2, hemoglobin is 13.6, hematocrit is 40.4, platelets a re 254. She has 6.6 neutrophils, lymphs are 2.7. Electrolytes are all within normal limits with the exception of a mild elevation of her AST and ALT. Ultrasound shows a normal left and right ovary. There is trace fluid in the pelvis at this time. Urinalysis shows a pH of 7.0; no leukocyte esterase or nitrites are noted at this time. IMPRESSION: A 48-year-old female status post diagnostic laparoscopy with removal of a left corpus he morrhagicum. At this time, she has abdominal pain of uncertain etiology. If it had been a perforate d bowel we would expect to see some kind of findings much earlier than this. We will obtain a CT to rule out a perforated bowel, await those results. I have talked to Dr. Tavares govea. At this point, he is recommending giving her IV fluids and monitoring overnight. We will w ait to see what the CAT scan shows. TD: 07/14/2018 21:57
== END 2018-07-14 23:09 | disposition home or self-care (01) ==
LOC: ED 16:47
DX: R10.9 Unspecified abdominal pain (principal); Z98.890 Other specified postprocedural states
CPT/HCPCS: 36415; 74177; 76830; 76856; 80053; 81003; 83690; 84703; 85025; 93975; 96361; 96365; 96375; 96376; 99283; 99285; J0131; J2060; J7040; Q9967; 81001; 87086

== ENCOUNTER 2018-11-25 15:34 | Emergency (ER) | payer BC ==
[2018-11-25] MEDS ORDERED: LIDOCAINE 1% 2 ML VIAL SUBQ STA (18:38)
[2018-11-25] MEDS ORDERED: PROMETHAZINE INJ 12.5 MG in SODIUM CHLORIDE 0.9% 50 ML IV STA (18:39)
[2018-11-25] MEDS ORDERED: KETOROLAC 30 MG/ML VIAL IVP STA (18:39)
[2018-11-25] MEDS ORDERED: SODIUM CHLORIDE 0.9% 1,000 ML IV ONE (18:41)
--- NOTE | 2018-11-25 19:23 | CT Report ---
Reason: headache for 6 days Procedure Date: 11/25/2018 Accession Number: [id number] / [id number] Procedure: CT - HEAD WO CPT Code: FULL RESULT: EXAM: CT HEAD EXAM DATE: 11/25/2018 06:55 PM. CLINICAL HISTORY: Headache for 6 days. COMPARISON: None available. TECHNIQUE: Multiaxial CT images were obtained from the foramen magnum to the vertex. Reformats: Sagittal and coronal. IV contrast: None. In accordance with CT protocol optimization, one or more of the following dose reduction techniques were utilized for this exam: automated exposure control, adjustment of mA and/or KV based on patient size, or use of iterative reconstructive technique. FINDINGS: Parenchyma: No acute intraparenchymal hemorrhage. No evidence of mass or midline shift. Duran-white differentiation is distinct. There is a tiny pineal gland cyst measuring 3 mm, which is likely an incidental finding and of doubtful clinical significance. Extraaxial Spaces: No subdural or epidural collections identified. Ventricles: Normal in size. Sinuses and Orbits: Imaged paranasal sinuses, orbits, and mastoids show no significant abnormality. Bones: No evidence of fracture or calvarial defect. Other: None. IMPRESSION: No acute intracranial findings. RADIA
[2018-11-25 19:27] LABS: BASOPHILS # (AUTO) 0.1 10^3/uL (0.0-0.1); BASOPHILS % (AUTO) 0.5 %; EOSINOPHILS % (AUTO) 0.2 %; HGB - HEMOGLOBIN 13.6 g/dL (12.0-16.0); LYMPHOCYTES # (AUTO) 1.4 10^3/uL (1.5-3.5); LYMPHOCYTES % (AUTO) 14.2 %; MEAN CORPUSCULAR HEMOGLOBIN 32.3 pg (27.0-31.0); MEAN CORPUSCULAR HGB CONC 33.5 g/dL (32.0-36.0); MEAN CORPUSCULAR VOLUME 96.4 fL (81.0-99.0); MEAN PLATELET VOLUME 10.3 fL (7.9-10.8); MONOCYTES # (AUTO) 0.5 10^3/uL (0.0-1.0); MONOCYTES % (AUTO) 5.1 %; NEUTROPHILS # (AUTO) 7.8 10^3/uL (1.5-6.6); NEUTROPHILS % (AUTO) 79.4 %; PLT - PLATELET COUNT 248 10^3/uL (130-450); RED BLOOD COUNT 4.21 10^6/uL (4.20-5.40); RED CELL DISTRIBUTION WIDTH 12.6 % (12.0-15.0); WHITE BLOOD COUNT 9.8 x10^3/uL (4.8-10.8)
[2018-11-25 19:34] LABS: ALBUMIN/GLOBULIN RATIO 1.5 (1.0-2.2); BILIRUBIN,TOTAL 0.5 mg/dL (0.2-1.0); CALCIUM 9.1 mg/dL (8.5-10.3); MAGNESIUM 2.2 mg/dL (1.7-2.8); TOTAL PROTEIN 6.6 g/dL (6.7-8.2)
[2018-11-25] MEDS ORDERED: fentaNYL 100 MCG/2 ML VIAL IVP STA ×2 (19:34→20:54)
[2018-11-25] MEDS ORDERED: ACETAMINOPHEN 1,000 MG/100 ML 100 ML IV STA (19:34)
[2018-11-25] MEDS ORDERED: DEXAMETHASONE 10 MG/ML VIAL IVP STA (20:56)
[2018-11-25 23:37] VITALS: BP 89/60
--- NOTE | 2018-11-27 21:20 | ED Physician Documentation ---
PD HPI HEADACHE - Stated complaint Stated Complaint: HEADACHE - Chief complaint Chief Complaint: Neuro - History obtained from History obtained from: Patient - History of Present Illness Timing - onset: How many weeks ago (2) Timing - details: Gradual onset, Waxing and waning Pain level now: 8 Location: Global, Other (mostly bifrontal but also radiates around bilaterally to occiput) Associated symptoms: Nausea. No: Fever, Stiff neck, Vomiting, Weakness, Numbness, Eye pain (worse with eye movement but no eye pain per se), Vision changes Improved by: Rest, Dark room Contributing factors: No: Anticoagulated, Possible carbon monoxide, Hypertension, Recent illness Recently seen: Not recently seen Review of Systems Constitutional: reports: Reviewed and negative Eyes: reports: Reviewed and negative Cardiac: reports: Reviewed and negative Respiratory: reports: Reviewed and negative GI: reports: Nausea. denies: Abdominal Pain, Vomiting Musculoskeletal: denies: Neck pain Neurologic: reports: Headache. 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 HEENT: None Psych: None Musculoskeletal: None Derm: None - Past Surgical History Past Surgical History: Yes General: Appendectomy /JUNIOR ANALYST: Other - Present Medications Home Medications: Ambulatory Orders Medication Instructions Recorded Confirmed Polyethylene Glycol 3350 [Miralax] 17 gm PO DAILY PRN #1 bottle 07/14/18 Promethazine [Phenergan] 25 mg PO Q6H PRN #30 tab 07/14/18 traMADol [Ultram] 50 mg PO Q6H PRN #30 tablet 07/14/18 HYDROmorphone [Dilaudid] 2 mg PO Q4H PRN #14 tablet 11/25/18 - Allergies Allergies/Adverse Reactions: Allergies Allergy/AdvReac Type Severity Reaction Status Date / Time amoxicillin Allergy Rash Verified 11/25/18 16:01 clindamycin Allergy Rash Verified 11/25/18 16:01 diphenhydramine Allergy Hives Verified 11/25/18 16:01 [From Benadryl] ketamine Allergy Hallucinati Verified 11/25/18 16:01 ons oxycodone [From Percocet] Allergy Rash Verified 11/25/18 16:01 Penicillins Allergy Rash Verified 11/25/18 16:01 - Social History Does the pt smoke?: No Smoking Status: Never smoker Does the pt drink ETOH?: No Does the pt have substance abuse?: No - Immunizations Immunizations are current?: Yes - POLST Patient has POLST: No PD ED PE NORMAL - Vitals Vital signs reviewed: Yes - General General: Alert and oriented X 3, Well developed/nourished, Other (appears uncomfortable, prefers eyes closed; has already received medications in ED prior to my evaluation) - HEENT HEENT: PERRL, EOMI, Moist mucous membranes - Neck Neck: Supple, no meningeal sign - Cardiac Cardiac: RRR, No murmur - Respiratory Respiratory: No respiratory distress, Clear bilaterally - Abdomen Abdomen: Soft, Non tender - Derm Derm: Normal color, Warm and dry, No rash - Neuro Neuro: Alert and oriented X 3, spout positioner 2-12 intact, No motor deficit, No sensory deficit, Normal speech Eye Opening: To Voice Motor: Obeys Commands Verbal: Oriented GCS Score: 14 Results - Vitals Vitals: Oxygen O2 Source Room air - Labs Labs: Laboratory Tests 11/25/18 11/25/18 11/25/18 19:10 19:10 19:10 WBC 9.8 RBC 4.21 Hgb 13.6 Hct 40.6 MCV 96.4 MCH 32.3 H MCHC 33.5 RDW 12.6 Plt Count 248 MPV 10.3 Neut # (Auto) 7.8 H Lymph # (Auto) 1.4 L [place] # (Auto) 0.5 Eos # (Auto) 0.0 Baso # (Auto) 0.1 Absolute Nucleated RBC 0.00 Nucleated RBC % 0.0 ESR 4 Sodium 137 Potassium 4.2 Chloride 104 Carbon Dioxide 25 Anion Gap 8.0 BUN 13 Creatinine 1.0 Estimated GFR (MDRD) 59 L Glucose 101 H Calcium 9.1 Magnesium 2.2 Total Bilirubin 0.5 AST 23 ALT 18 Alkaline Phosphatase 36 L Total Protein 6.6 L Albumin 4.0 Globulin 2.6 Albumin/Globulin Ratio 1.5 Lipase 35 - Rads (name of study) CT head Radiology: Prelim report reviewed, See rad report PD MEDICAL DECISION MAKING - ED course Complexity details: reviewed results, re-evaluated patient, considered differential, d/w patient ED course: reports adequate relief after IV NS, ofirmev, fentanyl, toradol, phenergan, and decadron. reassuring tests (CTH , cbc, er abd. panel, esr). unremarkable neuro exam. reevaluated prior to disposition/discharge, she is in NAD, awake, alert, and conversant, appears comfortable with eyes open (denied photophobia although noted to prefer eyes closed during my H+P). Departure - Departure Disposition: 01 Home, Self Care Clinical Impression: Headache Qualifiers: Headache type: unspecified Headache chronicity pattern: acute headache Intractability: not intractable Qualified Code(s): R51 - Headache Condition: Good Instructions: ED Cephalgia Unspecified Follow-Up: Bianca Loza ARNP [Primary Care Provider] - Prescriptions: HYDROmorphone [Dilaudid] 2 mg PO Q4H PRN #14 tablet PRN Reason: Headache Discharge Date/Time: 11/25/18 23:50
== END 2018-11-25 23:50 | disposition home or self-care (01) ==
LOC: ED 15:34
DX: R51 Headache (principal); R11.0 Nausea
CPT/HCPCS: 36415; 70450; 80053; 83690; 83735; 85025; 85651; 96361; 96365; 96368; 96375; 99284; J0131; J7040

== ENCOUNTER 2018-12-13 08:43 | Outpatient (CLI) | payer BC ==
[2018-12-13] MEDS ORDERED: IOVERSOL 320 100 ML VIAL IVP ONE ×2 (08:57→18:47)
--- NOTE | 2018-12-13 11:02 | CT Report ---
Reason: NEW ONSET HEADACHE, TINNITUS, NECK PAIN, PARESTHES Procedure Date: 12/13/2018 Accession Number: [id number] / [id number] Procedure: CT - ANGIO NECK W CPT Code: FULL RESULT: EXAM: CT ANGIOGRAM HEAD AND NECK EXAM DATE: 12/13/2018 09:20 AM. CLINICAL HISTORY: NEW ONSET HEADACHE, TINNITUS, NECK PAIN, paresthesia. COMPARISON: HEAD W/O 11/25/2018 6:51 PM. TECHNIQUE: Routine axial helical imaging was performed of the head and neck. Reconstructions: Routine multiplanar 3D MIP reconstructions. IV Contrast: 80 mL Optiray 320. Evaluation of arterial stenosis is based on a NASCET method of measurement. In accordance with CT protocol optimization, one or more of the following dose reduction techniques were utilized for this exam: automated exposure control, adjustment of mA and/or KV based on patient size, or use of iterative reconstructive technique. FINDINGS: Right Carotid: The common carotid, internal carotid, and external carotid arteries are widely patent. No dissection, significant atherosclerotic plaque, or calcification identified. Left Carotid: The common carotid, internal carotid, and external carotid arteries are widely patent. No dissection, significant atherosclerotic plaque, or calcification identified. Vertebrals: The vertebrobasilar system shows no stenoses. Intracranial Circulation: Normal. No stenoses or aneurysms of the visualized vessels. Other: The bones, soft tissues, and lung apices are within normal limits. IMPRESSION: 1. Normal neck CT angiogram. No carotid or vertebral stenosis per new. 2. Normal intracranial CT under [place]. No intracranial stenosis or aneurysm. RADIA
== END 2018-12-13 08:44 | disposition home or self-care (01) ==
LOC: DI 08:43
PROVIDERS: ATTEND Psychiatry & Neurology Neurology
DX: R51 Headache (principal); H93.19 Tinnitus, unspecified ear; M54.2 Cervicalgia; R20.2 Paresthesia of skin; H53.9 Unspecified visual disturbance
CPT/HCPCS: 70498; Q9967

== ENCOUNTER 2019-10-17 15:36 | Outpatient (CLI) | payer BC ==
[2019-10-17 19:58] LABS: BASOPHILS # (AUTO) 0.1 10^3/uL (0.0-0.1); BASOPHILS % (AUTO) 1.1 %; EOSINOPHILS # (AUTO) 0.1 10^3/uL (0.0-0.7); EOSINOPHILS % (AUTO) 2.2 %; HGB - HEMOGLOBIN 13.5 g/dL (12.0-16.0); LYMPHOCYTES # (AUTO) 2.1 10^3/uL (1.5-3.5); MEAN CORPUSCULAR HEMOGLOBIN 31.5 pg (27.0-31.0); MEAN CORPUSCULAR HGB CONC 33.4 g/dL (32.0-36.0); MEAN CORPUSCULAR VOLUME 94.2 fL (81.0-99.0); MEAN PLATELET VOLUME 11.2 fL (7.9-10.8); MONOCYTES # (AUTO) 0.4 10^3/uL (0.0-1.0); MONOCYTES % (AUTO) 6.5 %; NEUTROPHILS # (AUTO) 2.8 10^3/uL (1.5-6.6); PLT - PLATELET COUNT 275 10^3/uL (130-450); RED BLOOD COUNT 4.29 10^6/uL (4.20-5.40); RED CELL DISTRIBUTION WIDTH 12.2 % (12.0-15.0); WHITE BLOOD COUNT 5.4 x10^3/uL (4.8-10.8)
[2019-10-17 20:07] LABS: ALBUMIN 4.1 g/dL (3.2-5.5); ALBUMIN/GLOBULIN RATIO 1.5 (1.0-2.2); BILIRUBIN,TOTAL 0.6 mg/dL (0.2-1.0); CALCIUM 9.6 mg/dL (8.5-10.3); CREATININE 0.8 mg/dL (0.4-1.0); CRP HIGH SENSITIVITY 1.6 mg/L; TOTAL PROTEIN 6.9 g/dL (6.7-8.2)
[2019-10-17 20:12] LABS: HEMOGLOBIN A1C 0.49 g/dL; HEMOGLOBIN A1C % 5.4 % (4.6-6.2)
[2019-10-17 20:20] LABS: T4 (THYROXINE) 7.35 ug/dL (6.09-12.23)
[2019-10-17 20:22] LABS: THYROID STIMULATING HORMONE 1.69 uIU/mL (0.34-5.60)
[2019-10-17 20:25] LABS: FREE T3 3.28 pg/mL (2.5-3.9)
[2019-10-17 20:29] LABS: TOTAL T3 1.1 ng/mL (0.87-1.78)
[2019-10-19 11:21] LABS: HOMOCYSTEINE 6.1 umol/L (<10.4)
[2019-10-20 13:30] LABS: DHEA SULFATE 45 mcg/dL (19-231)
[2019-10-22 15:54] LABS: T3 REVERSE 18 ng/dL (8-25)
== END 2019-10-17 15:37 | disposition home or self-care (01) ==
LOC: LAB.S 15:36
PROVIDERS: ATTEND Naturopath
DX: G31.84 Mild cognitive impairment of uncertain or unknown etiology (principal); G44.229 Chronic tension-type headache, not intractable; K59.00 Constipation, unspecified; R10.10 Upper abdominal pain, unspecified; K59.9 Functional intestinal disorder, unspecified; G47.9 Sleep disorder, unspecified; M54.5 Low back pain; M25.60 Stiffness of unspecified joint, not elsewhere classified; E03.9 Hypothyroidism, unspecified; E27.49 Other adrenocortical insufficiency; I95.0 Idiopathic hypotension; R53.81 Other malaise
CPT/HCPCS: 36415; 80053; 81599; 82627; 83036; 83090; 84436; 84443; 84480; 84481; 84482; 85025; 85651; 86038; 86039; 86141; 86376; 86618; 86666; 86753; 86800

== ENCOUNTER 2019-10-20 08:29 | Outpatient (CLI) | payer BC ==
[2019-10-20 15:49] LABS: % IRON SATURATION 36 % (20-50); IRON 97 ug/dL (28-170); TOTAL IRON BINDING CAPACITY 269 ug/dL (250-450); TRANSFERRIN 192 mg/dL (192-382)
== END 2019-10-20 08:30 | disposition home or self-care (01) ==
LOC: LAB.S 08:29
PROVIDERS: ATTEND Naturopath
DX: E03.9 Hypothyroidism, unspecified (principal); E27.49 Other adrenocortical insufficiency; G31.84 Mild cognitive impairment of uncertain or unknown etiology; G44.229 Chronic tension-type headache, not intractable; G47.9 Sleep disorder, unspecified; I95.0 Idiopathic hypotension; K59.00 Constipation, unspecified; K59.9 Functional intestinal disorder, unspecified; M25.60 Stiffness of unspecified joint, not elsewhere classified; M54.5 Low back pain; R53.81 Other malaise
CPT/HCPCS: 36415; 81599; 82533; 83540; 84466; 86255

== ENCOUNTER 2019-11-07 14:45 | Outpatient (CLI) | payer BC | END 2019-11-07 14:46 | disposition home or self-care (01) | LOC: LAB.S 14:45 | PROVIDERS: ATTEND Naturopath | DX: E03.9 Hypothyroidism, unspecified (principal); E27.49 Other adrenocortical insufficiency; G31.84 Mild cognitive impairment of uncertain or unknown etiology; G44.229 Chronic tension-type headache, not intractable; G47.9 Sleep disorder, unspecified; I95.0 Idiopathic hypotension; K59.00 Constipation, unspecified; K59.9 Functional intestinal disorder, unspecified; M25.60 Stiffness of unspecified joint, not elsewhere classified; M54.5 Low back pain; R10.10 Upper abdominal pain, unspecified; R53.81 Other malaise | CPT/HCPCS: 36415; 81599; 83516; 86038; 86039 ==

== ENCOUNTER 2019-12-01 07:13 | Outpatient (CLI) | payer BC ==
[2019-12-01 15:53] LABS: T4 (THYROXINE) 3.33 ug/dL (6.09-12.23)
[2019-12-01 15:55] LABS: THYROID STIMULATING HORMONE 0.63 uIU/mL (0.34-5.60)
[2019-12-01 15:57] LABS: FREE T3 3.97 pg/mL (2.5-3.9); FREE T4 (FREE THYROXINE) 0.39 ng/dL (0.58-1.64)
[2019-12-01 16:02] LABS: TOTAL T3 1.41 ng/mL (0.87-1.78)
[2019-12-04 13:23] LABS: DHEA SULFATE 58 mcg/dL (19-231)
[2019-12-04 14:23] LABS: T3 REVERSE 10 ng/dL (8-25)
== END 2019-12-01 07:14 | disposition home or self-care (01) ==
LOC: LAB.S 07:13
PROVIDERS: ATTEND Naturopath
DX: E03.9 Hypothyroidism, unspecified (principal); E27.49 Other adrenocortical insufficiency; G31.84 Mild cognitive impairment of uncertain or unknown etiology; G44.229 Chronic tension-type headache, not intractable; G47.9 Sleep disorder, unspecified; I95.0 Idiopathic hypotension; K59.00 Constipation, unspecified; K59.9 Functional intestinal disorder, unspecified; M25.60 Stiffness of unspecified joint, not elsewhere classified; R53.81 Other malaise; R76.0 Raised antibody titer; Z82.62 Family history of osteoporosis
CPT/HCPCS: 36415; 81599; 82306; 82627; 83704; 84140; 84436; 84439; 84443; 84480; 84481; 84482; 86038

== ENCOUNTER 2020-04-25 17:00 | Outpatient (CLI) | payer BC | END 2020-04-25 17:01 | disposition home or self-care (01) | LOC: COV 17:00 | PROVIDERS: ATTEND Family Medicine | DX: R50.9 Fever, unspecified (principal); Z20.828 Contact with and (suspected) exposure to other viral communicable diseases; R05 Cough; J02.9 Acute pharyngitis, unspecified; M79.10 Myalgia, unspecified site; R53.83 Other fatigue ==

== ENCOUNTER 2020-05-14 07:57 | Outpatient (CLI) | payer BC ==
[2020-05-14 16:04] LABS: BASOPHILS % (AUTO) 0.8 %; EOSINOPHILS # (AUTO) 0.1 10^3/uL (0.0-0.7); EOSINOPHILS % (AUTO) 1.8 %; HGB - HEMOGLOBIN 12.4 g/dL (12.0-16.0); MEAN CORPUSCULAR HEMOGLOBIN 31.1 pg (27.0-31.0); MEAN CORPUSCULAR HGB CONC 32.1 g/dL (32.0-36.0); MEAN CORPUSCULAR VOLUME 96.7 fL (81.0-99.0); MEAN PLATELET VOLUME 10.7 fL (7.9-10.8); MONOCYTES # (AUTO) 0.4 10^3/uL (0.0-1.0); MONOCYTES % (AUTO) 6.9 %; NEUTROPHILS # (AUTO) 2.6 10^3/uL (1.5-6.6); NEUTROPHILS % (AUTO) 51.1 %; PLT - PLATELET COUNT 233 10^3/uL (130-450); RED BLOOD COUNT 3.99 10^6/uL (4.20-5.40); RED CELL DISTRIBUTION WIDTH 12.6 % (12.0-15.0); WHITE BLOOD COUNT 5.1 x10^3/uL (4.8-10.8)
[2020-05-14 16:37] LABS: T4 (THYROXINE) 4.12 ug/dL (6.09-12.23)
[2020-05-14 16:40] LABS: THYROID STIMULATING HORMONE 0.44 uIU/mL (0.34-5.60)
[2020-05-14 16:44] LABS: FREE T3 3.35 pg/mL (2.5-3.9)
[2020-05-14 16:47] LABS: TOTAL T3 1.47 ng/mL (0.87-1.78)
[2020-05-14 16:51] LABS: BILIRUBIN,URINE NEGATIVE (NEGATIVE); GLUCOSE, URINE (UA) NEGATIVE (NEGATIVE); KETONES,URINE (UA) NEGATIVE (NEGATIVE); LEUKOCYTE ESTERASE, URINE NEGATIVE (NEGATIVE); NITRITE,URINE NEGATIVE (NEGATIVE); OCCULT BLOOD,URINE NEGATIVE (NEGATIVE); PH,URINE 7.5 PH (5.0-7.5); PROTEIN,URINE NEGATIVE (NEGATIVE); UROBILINOGEN,URINE 0.2 (NORMAL) E.U./dL (NORMAL)
[2020-05-14 16:54] LABS: ALBUMIN 4.1 g/dL (3.2-5.5); ALBUMIN/GLOBULIN RATIO 1.6 (1.0-2.2); BILIRUBIN,TOTAL 0.5 mg/dL (0.2-1.0); CALCIUM 9.5 mg/dL (8.5-10.3); CREATININE 0.9 mg/dL (0.4-1.0); CRP HIGH SENSITIVITY 0.9 mg/L; TOTAL PROTEIN 6.6 g/dL (6.7-8.2)
[2020-05-14 16:57] LABS: RHEUMATOID FACTOR NEGATIVE (Negative)
[2020-05-14 17:13] LABS: AMORPHOUS SEDIMENT,UR Marked /LPF; BACTERIA,URINE Few /HPF (None Seen); CLARITY,URINE SL. CLOUDY (CLEAR); RBC,URINE None Seen /HPF (0-5); SQUAMOUS EPITHELIAL CELL,UR NONE SEEN (<= Few)
[2020-05-16 13:42] LABS: DHEA SULFATE 96 mcg/dL (19-231)
[2020-05-17 11:37] LABS: METHYLMALONIC ACID 350 nmol/L (87-318)
[2020-05-17 15:14] LABS: T3 REVERSE 7 ng/dL (8-25)
== END 2020-05-14 07:58 | disposition home or self-care (01) ==
LOC: LAB.S 07:57
PROVIDERS: ATTEND Naturopath
DX: E27.49 Other adrenocortical insufficiency (principal); G31.84 Mild cognitive impairment of uncertain or unknown etiology; G47.9 Sleep disorder, unspecified; K59.9 Functional intestinal disorder, unspecified; L65.9 Nonscarring hair loss, unspecified; R76.0 Raised antibody titer; R10.10 Upper abdominal pain, unspecified; Z82.62 Family history of osteoporosis; M25.60 Stiffness of unspecified joint, not elsewhere classified; K59.00 Constipation, unspecified; E03.9 Hypothyroidism, unspecified; R21 Rash and other nonspecific skin eruption
CPT/HCPCS: 36415; 80053; 81001; 81599; 82306; 82533; 82627; 83540; 83921; 84140; 84436; 84443; 84466; 84480; 84481; 84482; 85025; 86038; 86141; 86376; 86430; 86800

== ENCOUNTER 2021-01-28 08:31 | Outpatient (CLI) | payer BC ==
[2021-01-28 14:53] LABS: BASOPHILS % (AUTO) 0.7 %; EOSINOPHILS # (AUTO) 0.3 10^3/uL (0.0-0.7); EOSINOPHILS % (AUTO) 4.6 %; HCT - HEMATOCRIT 36.2 % (37.0-47.0); HGB - HEMOGLOBIN 11.5 g/dL (12.0-16.0); LYMPHOCYTES # (AUTO) 2.1 10^3/uL (1.5-3.5); LYMPHOCYTES % (AUTO) 37.8 %; MEAN CORPUSCULAR HEMOGLOBIN 30.7 pg (27.0-31.0); MEAN CORPUSCULAR HGB CONC 31.8 g/dL (32.0-36.0); MEAN CORPUSCULAR VOLUME 96.5 fL (81.0-99.0); MEAN PLATELET VOLUME 10.3 fL (7.9-10.8); MONOCYTES # (AUTO) 0.5 10^3/uL (0.0-1.0); MONOCYTES % (AUTO) 8.3 %; NEUTROPHILS # (AUTO) 2.6 10^3/uL (1.5-6.6); NEUTROPHILS % (AUTO) 48.4 %; PLT - PLATELET COUNT 267 10^3/uL (130-450); RED BLOOD COUNT 3.75 10^6/uL (4.20-5.40); RED CELL DISTRIBUTION WIDTH 12.6 % (12.0-15.0); WHITE BLOOD COUNT 5.4 x10^3/uL (4.8-10.8)
[2021-01-28 14:58] LABS: BILIRUBIN,URINE NEGATIVE (NEGATIVE); GLUCOSE, URINE (UA) NEGATIVE (NEGATIVE); KETONES,URINE (UA) NEGATIVE (NEGATIVE); LEUKOCYTE ESTERASE, URINE NEGATIVE (NEGATIVE); NITRITE,URINE NEGATIVE (NEGATIVE); OCCULT BLOOD,URINE NEGATIVE (NEGATIVE); PH,URINE 7.5 PH (5.0-7.5); PROTEIN,URINE NEGATIVE (NEGATIVE); UROBILINOGEN,URINE 0.2 (NORMAL) E.U./dL (NORMAL)
[2021-01-28 15:07] LABS: BACTERIA,URINE Rare /HPF (None Seen); CLARITY,URINE CLEAR (CLEAR); RBC,URINE 0-5 /HPF (0-5); SQUAMOUS EPITHELIAL CELL,UR RARE Squamous (<= Few); WBC,URINE 0-3 /HPF (0-5)
[2021-01-28 15:23] LABS: T4 (THYROXINE) 4.94 ug/dL (6.09-12.23)
[2021-01-28 15:24] LABS: ALBUMIN 4.1 g/dL (3.2-5.5); ALBUMIN/GLOBULIN RATIO 1.8 (1.0-2.2); BILIRUBIN,TOTAL 0.4 mg/dL (0.2-1.0); CALCIUM 9.6 mg/dL (8.5-10.3); CREATININE 0.8 mg/dL (0.4-1.0); CRP HIGH SENSITIVITY 2.6 mg/L; POTASSIUM 3.7 mmol/L (3.5-5.0); TOTAL PROTEIN 6.4 g/dL (6.7-8.2)
[2021-01-28 15:25] LABS: THYROID STIMULATING HORMONE 1.7 uIU/mL (0.34-5.60)
[2021-01-28 15:27] LABS: FREE T3 5.99 pg/mL (2.5-3.9)
[2021-01-28 15:32] LABS: FERRITIN 47.3 ng/mL (11.0-306.8)
[2021-01-28 23:34] LABS: RHEUMATOID FACTOR NEGATIVE (Negative)
[2021-01-31 10:16] LABS: DHEA SULFATE 405 mcg/dL (8-188)
[2021-01-31 15:31] LABS: THYROID PEROXIDASE ANTIBODIES <1 IU/mL (<9)
[2021-02-01 19:52] LABS: METHYLMALONIC ACID 307 nmol/L (87-318)
[2021-02-03 14:46] LABS: T3 REVERSE 9 ng/dL (8-25)
== END 2021-01-28 08:32 | disposition home or self-care (01) ==
LOC: LAB.S 08:31
PROVIDERS: ATTEND Naturopath
DX: E03.9 Hypothyroidism, unspecified (principal); E27.49 Other adrenocortical insufficiency; R76.0 Raised antibody titer; G31.84 Mild cognitive impairment of uncertain or unknown etiology; G47.9 Sleep disorder, unspecified; Z82.62 Family history of osteoporosis; F44.4 Conversion disorder with motor symptom or deficit; F44.6 Conversion disorder with sensory symptom or deficit; F44.7 Conversion disorder with mixed symptom presentation; D51.9 Vitamin B12 deficiency anemia, unspecified; R53.82 Chronic fatigue, unspecified
CPT/HCPCS: 36415; 80053; 81001; 81599; 82306; 82533; 82627; 82728; 83540; 83921; 84140; 84436; 84443; 84466; 84480; 84481; 84482; 85025; 86038; 86141; 86376; 86430; 86800

== ENCOUNTER 2021-02-13 07:41 | Outpatient (CLI) | payer BC ==
[2021-02-13 15:27] LABS: BASOPHILS # (AUTO) 0.1 10^3/uL (0.0-0.1); BASOPHILS % (AUTO) 0.7 %; EOSINOPHILS # (AUTO) 0.2 10^3/uL (0.0-0.7); EOSINOPHILS % (AUTO) 2.8 %; HCT - HEMATOCRIT 36.4 % (37.0-47.0); HGB - HEMOGLOBIN 11.9 g/dL (12.0-16.0); LYMPHOCYTES # (AUTO) 2.4 10^3/uL (1.5-3.5); LYMPHOCYTES % (AUTO) 33.6 %; MEAN CORPUSCULAR HEMOGLOBIN 31.7 pg (27.0-31.0); MEAN CORPUSCULAR HGB CONC 32.7 g/dL (32.0-36.0); MEAN CORPUSCULAR VOLUME 97.1 fL (81.0-99.0); MEAN PLATELET VOLUME 10.3 fL (7.9-10.8); MONOCYTES # (AUTO) 0.5 10^3/uL (0.0-1.0); MONOCYTES % (AUTO) 6.7 %; NEUTROPHILS # (AUTO) 4.1 10^3/uL (1.5-6.6); NEUTROPHILS % (AUTO) 55.9 %; PLT - PLATELET COUNT 282 10^3/uL (130-450); RED BLOOD COUNT 3.75 10^6/uL (4.20-5.40); RED CELL DISTRIBUTION WIDTH 12.9 % (12.0-15.0); WHITE BLOOD COUNT 7.3 x10^3/uL (4.8-10.8)
[2021-02-13 15:57] LABS: T4 (THYROXINE) 4.86 ug/dL (6.09-12.23)
[2021-02-13 15:59] LABS: THYROID STIMULATING HORMONE 1.54 uIU/mL (0.34-5.60)
[2021-02-13 16:02] LABS: FREE T3 3.15 pg/mL (2.5-3.9); FREE T4 (FREE THYROXINE) 0.63 ng/dL (0.58-1.64)
[2021-02-14 11:01] LABS: HOMOCYSTEINE 5.6 umol/L (<10.4)
[2021-02-17 14:06] LABS: INTRINSIC FACTOR BLOCKING AB NEGATIVE
[2021-02-18 16:45] LABS: DHEA SULFATE 4 mcg/dL (8-188)
[2021-02-19 16:16] LABS: T3 REVERSE 8 ng/dL (8-25)
[2021-02-20 10:42] LABS: METHYLMALONIC ACID 213 nmol/L (87-318)
== END 2021-02-13 07:42 | disposition home or self-care (01) ==
LOC: LAB.S 07:41
PROVIDERS: ATTEND Naturopath
DX: D51.9 Vitamin B12 deficiency anemia, unspecified (principal); R76.0 Raised antibody titer; R53.82 Chronic fatigue, unspecified; E27.49 Other adrenocortical insufficiency; E03.9 Hypothyroidism, unspecified; K59.00 Constipation, unspecified; G31.84 Mild cognitive impairment of uncertain or unknown etiology
CPT/HCPCS: 36415; 81599; 82533; 82607; 82627; 83090; 83921; 84436; 84439; 84443; 84480; 84481; 84482; 85025; 86255; 86340

== ENCOUNTER 2021-03-28 07:58 | Outpatient (CLI) | payer BC ==
[2021-03-28 15:20] LABS: ABSOLUTE RETICS # AUTO 0.054 10^6/uL (0.020-0.110); BASOPHILS # (AUTO) 0.1 10^3/uL (0.0-0.1); BASOPHILS % (AUTO) 0.9 %; BILIRUBIN,URINE NEGATIVE (NEGATIVE); EOSINOPHILS # (AUTO) 0.3 10^3/uL (0.0-0.7); EOSINOPHILS % (AUTO) 5.2 %; GLUCOSE, URINE (UA) NEGATIVE (NEGATIVE); HCT - HEMATOCRIT 36.2 % (37.0-47.0); KETONES,URINE (UA) NEGATIVE (NEGATIVE); LEUKOCYTE ESTERASE, URINE NEGATIVE (NEGATIVE); LYMPHOCYTES # (AUTO) 2.2 10^3/uL (1.5-3.5); LYMPHOCYTES % (AUTO) 38.7 %; MEAN CORPUSCULAR HEMOGLOBIN 31.2 pg (27.0-31.0); MEAN CORPUSCULAR HGB CONC 33.1 g/dL (32.0-36.0); MEAN PLATELET VOLUME 10.4 fL (7.9-10.8); MONOCYTES # (AUTO) 0.4 10^3/uL (0.0-1.0); MONOCYTES % (AUTO) 6.8 %; NEUTROPHILS # (AUTO) 2.7 10^3/uL (1.5-6.6); NEUTROPHILS % (AUTO) 48.2 %; NITRITE,URINE NEGATIVE (NEGATIVE); OCCULT BLOOD,URINE NEGATIVE (NEGATIVE); PLT - PLATELET COUNT 249 10^3/uL (130-450); PROTEIN,URINE NEGATIVE (NEGATIVE); RED BLOOD COUNT 3.85 10^6/uL (4.20-5.40); RED CELL DISTRIBUTION WIDTH 12.1 % (12.0-15.0); UROBILINOGEN,URINE 0.2 (NORMAL) E.U./dL (NORMAL); WHITE BLOOD COUNT 5.6 x10^3/uL (4.8-10.8)
[2021-03-28 15:21] LABS: CLARITY,URINE HAZY (CLEAR)
[2021-03-28 15:26] LABS: BACTERIA,URINE None Seen /HPF (None Seen); RBC,URINE 0-5 /HPF (0-5); SQUAMOUS EPITHELIAL CELL,UR MOD Squamous (<= Few); WBC,URINE 0-3 /HPF (0-5)
[2021-03-28 15:52] LABS: THYROID STIMULATING HORMONE 0.33 uIU/mL (0.34-5.60)
[2021-03-28 15:53] LABS: FREE T3 3.86 pg/mL (2.5-3.9)
[2021-03-28 15:54] LABS: FREE T4 (FREE THYROXINE) 0.66 ng/dL (0.58-1.64)
[2021-03-28 15:55] LABS: ALBUMIN 4.1 g/dL (3.2-5.5); ALBUMIN/GLOBULIN RATIO 1.6 (1.0-2.2); BILIRUBIN,TOTAL 0.6 mg/dL (0.2-1.0); CALCIUM 9.3 mg/dL (8.5-10.3); CREATININE 0.7 mg/dL (0.4-1.0); POTASSIUM 3.7 mmol/L (3.5-5.0); TOTAL PROTEIN 6.7 g/dL (6.7-8.2)
[2021-03-31 14:47] LABS: DHEA SULFATE 38 mcg/dL (8-188)
[2021-04-01 12:21] LABS: HAPTOGLOBIN 97 mg/dL (43-212)
[2021-04-02 17:21] LABS: T3 REVERSE 9 ng/dL (8-25)
== END 2021-03-28 07:59 | disposition home or self-care (01) ==
LOC: LAB.S 07:58
PROVIDERS: ATTEND Naturopath
DX: R76.0 Raised antibody titer (principal); R53.82 Chronic fatigue, unspecified; R10.10 Upper abdominal pain, unspecified; M25.60 Stiffness of unspecified joint, not elsewhere classified; K59.9 Functional intestinal disorder, unspecified; G47.9 Sleep disorder, unspecified; G31.84 Mild cognitive impairment of uncertain or unknown etiology; F44.7 Conversion disorder with mixed symptom presentation; E27.49 Other adrenocortical insufficiency; E03.9 Hypothyroidism, unspecified; D53.9 Nutritional anemia, unspecified; D53.1 Other megaloblastic anemias, not elsewhere classified
CPT/HCPCS: 36415; 80053; 81001; 81599; 82247; 82248; 82607; 82608; 82627; 82728; 82746; 82747; 83010; 83540; 83615; 84140; 84439; 84443; 84466; 84480; 84481; 84482; 85025; 85045; 87086

== ENCOUNTER 2021-06-06 07:51 | Outpatient (CLI) | payer BC ==
[2021-06-06 15:45] LABS: BASOPHILS # (AUTO) 0.1 10^3/uL (0.0-0.1); EOSINOPHILS # (AUTO) 0.2 10^3/uL (0.0-0.7); EOSINOPHILS % (AUTO) 3.9 %; HCT - HEMATOCRIT 38.8 % (37.0-47.0); HGB - HEMOGLOBIN 12.7 g/dL (12.0-16.0); LYMPHOCYTES # (AUTO) 2.4 10^3/uL (1.5-3.5); LYMPHOCYTES % (AUTO) 46.9 %; MEAN CORPUSCULAR HEMOGLOBIN 31.1 pg (27.0-31.0); MEAN CORPUSCULAR HGB CONC 32.7 g/dL (32.0-36.0); MEAN CORPUSCULAR VOLUME 94.9 fL (81.0-99.0); MEAN PLATELET VOLUME 11.1 fL (7.9-10.8); MONOCYTES # (AUTO) 0.4 10^3/uL (0.0-1.0); MONOCYTES % (AUTO) 7.3 %; NEUTROPHILS # (AUTO) 2.1 10^3/uL (1.5-6.6); NEUTROPHILS % (AUTO) 40.7 %; PLT - PLATELET COUNT 246 10^3/uL (130-450); RED BLOOD COUNT 4.09 10^6/uL (4.20-5.40); RED CELL DISTRIBUTION WIDTH 12.7 % (12.0-15.0); WHITE BLOOD COUNT 5.2 x10^3/uL (4.8-10.8)
[2021-06-06 16:42] LABS: ALBUMIN 4.1 g/dL (3.2-5.5); ALBUMIN/GLOBULIN RATIO 1.6 (1.0-2.2); BILIRUBIN,TOTAL 0.7 mg/dL (0.2-1.0); CALCIUM 9.3 mg/dL (8.5-10.3); CREATININE 0.8 mg/dL (0.4-1.0); CRP HIGH SENSITIVITY 2.2 mg/L; POTASSIUM 3.8 mmol/L (3.5-5.0); TOTAL PROTEIN 6.6 g/dL (6.7-8.2)
[2021-06-06 17:26] LABS: T4 (THYROXINE) 6.69 ug/dL (6.09-12.23)
[2021-06-06 17:29] LABS: THYROID STIMULATING HORMONE 0.35 uIU/mL (0.34-5.60)
[2021-06-06 17:30] LABS: FREE T3 4.59 pg/mL (2.5-3.9)
[2021-06-06 17:31] LABS: FREE T4 (FREE THYROXINE) 0.76 ng/dL (0.58-1.64)
[2021-06-07 22:41] LABS: FERRITIN 39.7 ng/mL (11.0-306.8)
[2021-06-09 16:17] LABS: T3 REVERSE 5 ng/dL (8-25)
[2021-06-10 00:21] LABS: DHEA SULFATE 201 mcg/dL (8-188)
== END 2021-06-06 07:52 | disposition home or self-care (01) ==
LOC: LAB.S 07:51
PROVIDERS: ATTEND Naturopath
DX: D53.1 Other megaloblastic anemias, not elsewhere classified (principal); D53.9 Nutritional anemia, unspecified; E03.9 Hypothyroidism, unspecified; F44.7 Conversion disorder with mixed symptom presentation; E27.49 Other adrenocortical insufficiency; G31.84 Mild cognitive impairment of uncertain or unknown etiology; R53.82 Chronic fatigue, unspecified; R76.0 Raised antibody titer; Z82.62 Family history of osteoporosis; G47.9 Sleep disorder, unspecified; K59.00 Constipation, unspecified; K59.9 Functional intestinal disorder, unspecified
CPT/HCPCS: 36415; 80053; 81599; 82306; 82627; 82728; 83540; 84140; 84436; 84439; 84443; 84466; 84480; 84481; 84482; 85025; 86141

== ENCOUNTER 2022-02-13 07:05 | Outpatient (CLI) | payer BC ==
[2022-02-13 14:39] LABS: BASOPHILS % (AUTO) 0.6 %; EOSINOPHILS # (AUTO) 0.2 10^3/uL (0.0-0.7); EOSINOPHILS % (AUTO) 2.7 %; HCT - HEMATOCRIT 39.7 % (37.0-47.0); LYMPHOCYTES # (AUTO) 2.6 10^3/uL (1.5-3.5); LYMPHOCYTES % (AUTO) 41.8 %; MEAN CORPUSCULAR HEMOGLOBIN 30.3 pg (27.0-31.0); MEAN CORPUSCULAR HGB CONC 32.7 g/dL (32.0-36.0); MEAN CORPUSCULAR VOLUME 92.5 fL (81.0-99.0); MEAN PLATELET VOLUME 10.9 fL (7.9-10.8); MONOCYTES # (AUTO) 0.5 10^3/uL (0.0-1.0); MONOCYTES % (AUTO) 7.9 %; NEUTROPHILS # (AUTO) 2.9 10^3/uL (1.5-6.6); NEUTROPHILS % (AUTO) 46.7 %; PLT - PLATELET COUNT 279 10^3/uL (130-450); RED BLOOD COUNT 4.29 10^6/uL (4.20-5.40); RED CELL DISTRIBUTION WIDTH 12.8 % (12.0-15.0); WHITE BLOOD COUNT 6.3 x10^3/uL (4.8-10.8)
[2022-02-13 15:06] LABS: T4 (THYROXINE) 7.99 ug/dL (6.09-12.23)
[2022-02-13 15:08] LABS: THYROID STIMULATING HORMONE 2.94 uIU/mL (0.34-5.60)
[2022-02-13 15:10] LABS: ALBUMIN 4.6 g/dL (3.2-5.5); ALBUMIN/GLOBULIN RATIO 1.8 (1.0-2.2); BILIRUBIN,TOTAL 0.2 mg/dL (0.2-1.0); CALCIUM 10.1 mg/dL (8.5-10.3); CREATININE 0.9 mg/dL (0.4-1.0); CRP HIGH SENSITIVITY 2.3 mg/L; FREE T3 3.19 pg/mL (2.5-3.9); FREE T4 (FREE THYROXINE) 0.72 ng/dL (0.58-1.64); POTASSIUM 3.9 mmol/L (3.5-5.0); TOTAL PROTEIN 7.1 g/dL (6.7-8.2)
[2022-02-13 15:15] LABS: FERRITIN 76.3 ng/mL (11.0-306.8)
[2022-02-14 04:08] LABS: VITAMIN D 25-HYDROXY 71.2 ng/mL (30.0-100.0)
[2022-02-17 16:08] LABS: REVERSE T3 SERUM 14.8 ng/dL (9.2-24.1)
== END 2022-02-13 07:06 | disposition home or self-care (01) ==
LOC: LAB.S 07:05
PROVIDERS: ATTEND Naturopath
DX: D53.1 Other megaloblastic anemias, not elsewhere classified (principal); D53.9 Nutritional anemia, unspecified; E03.9 Hypothyroidism, unspecified; F44.7 Conversion disorder with mixed symptom presentation; E27.49 Other adrenocortical insufficiency; G31.84 Mild cognitive impairment of uncertain or unknown etiology; R53.82 Chronic fatigue, unspecified; R76.0 Raised antibody titer; Z82.62 Family history of osteoporosis; G47.9 Sleep disorder, unspecified; K59.00 Constipation, unspecified; K59.9 Functional intestinal disorder, unspecified
CPT/HCPCS: 36415; 80053; 81599; 82306; 82626; 82627; 82728; 83540; 84140; 84436; 84439; 84443; 84466; 84480; 84481; 84482; 85025; 86141

== ENCOUNTER 2022-06-01 19:01 | Outpatient (CLI) | payer BC | END 2022-06-01 19:02 | disposition critical access hospital (66) | LOC: EMS 19:01 | DX: M54.50 Low back pain, unspecified (principal); V80.010A Animal-rider injured by fall from or being thrown from horse in noncollision accident, initial encounter; Y93.52 Activity, horseback riding; Y92.009 Unspecified place in unspecified non-institutional (private) residence as the place of occurrence of the external cause | CPT/HCPCS: A0425; A0427 ==

== ENCOUNTER 2022-06-01 19:32 | Inpatient (IN) | payer BC ==
[2022-06-01] MEDS ORDERED: hydrOXYzine PAMOATE 25 MG CAPSULE PO STA (19:39)
[2022-06-01] MEDS ORDERED: KETOROLAC 15 MG/ML VIAL IVP STA ×2 (19:39→22:34)
[2022-06-01] MEDS ORDERED: fentaNYL 100 MCG/2 ML VIAL IVP STA ×6 (19:39→22:55)
--- NOTE | 2022-06-01 19:41 | ED Physician Documentation ---
PD HPI BACK PAIN - Stated complaint Stated Complaint: FELL FROM HORSE - History obtained from History obtained from: Patient, EMS - Additional information Additional information: 51-year-old woman with functional neurologic disorder was bucked off her horse while riding bareback. She landed on her back and has severe low back pain. There was no head strike no amnesia. She has no other specific complaints except for tingly legs. She has multiple drug allergies and prior to arrival has received 150 mcg of fentanyl. Note anaphylactic allergy to Benadryl. 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 : None HEENT: None Psych: None Musculoskeletal: None Derm: None - Past Surgical History Past Surgical History: Yes General: Appendectomy /SENIOR COST ACCOUNTANT: Other - Present Medications Home Medications: Ambulatory Orders Medication Instructions Recorded Confirmed Promethazine [Phenergan] 25 mg PO Q6H PRN #30 tab 07/14/18 polyethylene glycoL 3350 [Miralax] 17 gm PO DAILY PRN #1 bottle 07/14/18 traMADol [Ultram] 50 mg PO Q6H PRN #30 tablet 07/14/18 HYDROmorphone [Dilaudid] 2 mg PO Q4H PRN #14 tablet 11/25/18 - Allergies Allergies/Adverse Reactions: Allergies Allergy/AdvReac Type Severity Reaction Status Date / Time amoxicillin Allergy Rash Verified 06/01/22 19:44 clindamycin Allergy Rash Verified 06/01/22 19:44 diphenhydramine Allergy Hives Verified 06/01/22 19:44 [From Benadryl] ketamine Allergy Hallucinati Verified 06/01/22 19:44 ons oxycodone [From Percocet] Allergy Rash Verified 06/01/22 19:44 Penicillins Allergy Rash Verified 06/01/22 19:44 - Social History Does the pt smoke?: No Smoking Status: Never smoker Does the pt drink ETOH?: No Does the pt have substance abuse?: No - Immunizations Immunizations are current?: Yes - POLST Patient has POLST: No PD ED PE NORMAL - Vitals Vital signs reviewed: Yes - General General: Alert and oriented X 3, Other (She is laying half facedown, right lateral decubitus and appears to be in severe pain.) - HEENT HEENT: PERRL, EOMI - Neck Neck: No bony TTP (But will CT given potential for distracting injury) - Cardiac Cardiac: RRR, No murmur - Respiratory Respiratory: No respiratory distress, Clear bilaterally - Abdomen Abdomen: Non tender - Back Back: Other (Severe tenderness of the mid to low lumbar spine) - Derm Derm: Normal color, Warm and dry - Extremities Extremities: No deformity, No tenderness to palpate, Normal ROM s pain, No edema, No calf tenderness / cord, Other (I am unable to elicit any tenderness or limited range of motion of the extremities on initial exam. That said her pain is not allowing her to move at all or cooperate with detailed neurologic exam on initial evaluation.) - Neuro Neuro: Alert and oriented X 3 Eye Opening: Spontaneous Motor: Obeys Commands Verbal: Oriented GCS Score: 15 Results - Vitals Vitals: Vital Signs - 24 hr 06/01/22 06/01/22 06/01/22 19:44 19:48 20:04 Temperature 36.5 C Heart Rate 101 H 98 91 Respiratory 24 25 H 22 Rate Blood Pressure 128/67 128/67 112/62 O2 Saturation 100 100 99 06/01/22 06/01/22 06/01/22 20:33 21:17 22:14 Temperature Heart Rate 94 94 73 Respiratory 20 18 15 Rate Blood Pressure 119/80 144/51 H 120/77 O2 Saturation 100 100 100 06/01/22 23:04 Temperature Heart Rate 75 Respiratory 18 Rate Blood Pressure 110/72 O2 Saturation 100 Oxygen O2 Source Nasal cannula - Labs Labs: Laboratory Tests 06/01/22 06/01/22 06/01/22 19:48 19:48 19:48 WBC 8.6 RBC 4.44 Hgb 13.3 Hct 41.9 MCV 94.4 MCH 30.0 MCHC 31.7 L RDW 12.5 Plt Count 314 MPV 10.4 Neut # (Auto) 5.7 Lymph # (Auto) 2.2 [place] # (Auto) 0.4 Eos # (Auto) 0.1 Baso # (Auto) 0.0 Absolute Nucleated RBC 0.00 Nucleated RBC % 0.0 PT 10.8 INR 1.0 Sodium 141 Potassium 3.4 L Chloride 99 L Carbon Dioxide 24 Anion Gap 18.0 H BUN 13 Creatinine 1.0 Estimated GFR (MDRD) 58 L Glucose 112 H Calcium 10.7 H - Rads (name of study) CT CSpine - NAD Radiology: Final report received, EMP read indepedently CT of the T and L spines demonstrates a T12 compression fracture with 40% height loss and a buckle fracture of S3 Radiology: Final report received, EMP read indepedently PD Medical Decision Making - ED course ED course: 51-year-old woman with fall from horse, predominantly lower back pain. She appears to be in severe pain and pain management will be difficult given multiple allergies and intolerances. After initial evaluation another 100 mcg of fentanyl was ordered along with hydroxyzine since she takes that at home and small dose of Toradol. She received further divided doses of fentanyl with decent effect of course was fleeting related to fentanyl short half-life. We were able to get her comfortable enough for a more thorough exam. The patient has equal and normal Achilles and patellar reflexes bilaterally. Normal sensation in all areas of the legs. Patient denies saddle anesthesia. Normal strength in flexion-extension at the ankles, knees, and flexion of the hips. We continue to give boluses of fentanyl combined with some Valium both p.o. and IV. A fentanyl patch was placed and subsequently a couple of hours later we placed a second 1 as we were still having a lot of breakthrough pain. Care to Dr. Hermosillo at 11 PM shift change pending improved pain management and callback from [facility]. Departure - Departure Clinical Impression: T12 compression fracture Qualifiers: Encounter type: initial encounter Qualified Code(s): S22.080A - Wedge compression fracture of T11-T12 vertebra, initial encounter for closed fracture Sacral fracture, closed Qualifiers: Encounter type: initial encounter Zone of sacrum fracture: unspecified portion of sacrum Qualified Code(s): S32.10XA - Unspecified fracture of sacrum, initial encounter for closed fracture Fall from horse Qualifiers: Encounter type: initial encounter Qualified Code(s): V80.010A - Animal-rider injured by fall from or being thrown from horse in noncollision accident, initial encounter Condition: Stable Instructions: ED Fx Comp Vertebral
[2022-06-01] MEDS ORDERED: diazePAM INJ 5 MG/ML SYRINGE IVP STA ×3 (19:57→22:18)
[2022-06-01 19:59] LABS: BASOPHILS % (AUTO) 0.5 %; EOSINOPHILS # (AUTO) 0.1 10^3/uL (0.0-0.7); EOSINOPHILS % (AUTO) 1.4 %; HCT - HEMATOCRIT 41.9 % (37.0-47.0); HGB - HEMOGLOBIN 13.3 g/dL (12.0-16.0); LYMPHOCYTES # (AUTO) 2.2 10^3/uL (1.5-3.5); LYMPHOCYTES % (AUTO) 25.9 %; MEAN CORPUSCULAR HGB CONC 31.7 g/dL (32.0-36.0); MEAN CORPUSCULAR VOLUME 94.4 fL (81.0-99.0); MEAN PLATELET VOLUME 10.4 fL (7.9-10.8); MONOCYTES # (AUTO) 0.4 10^3/uL (0.0-1.0); MONOCYTES % (AUTO) 5.1 %; NEUTROPHILS # (AUTO) 5.7 10^3/uL (1.5-6.6); NEUTROPHILS % (AUTO) 65.8 %; PLT - PLATELET COUNT 314 10^3/uL (130-450); RED BLOOD COUNT 4.44 10^6/uL (4.20-5.40); RED CELL DISTRIBUTION WIDTH 12.5 % (12.0-15.0); WHITE BLOOD COUNT 8.6 x10^3/uL (4.8-10.8)
[2022-06-01 20:08] LABS: PT - PROTHROMBIN TIME 10.8 secs (9.9-12.6)
[2022-06-01 20:18] LABS: CALCIUM 10.7 mg/dL (8.5-10.3); POTASSIUM 3.4 mmol/L (3.5-5.0)
[2022-06-01] MEDS ORDERED: ONDANSETRON 4 MG/2 ML VIAL IVP STA (21:23)
--- NOTE | 2022-06-01 21:37 | CT Report ---
PROCEDURE: CERVICAL SPINE WO INDICATIONS: fall, back inj TECHNIQUE: Noncontrast 3 mm thick sections acquired from the skull base to the T4 level. Sagittal and coronal r eformats were then constructed. For radiation dose reduction, the following was used: automated exp osure control, adjustment of mA and/or kV according to patient size. COMPARISON: None. FINDINGS: Image quality: Excellent. Bones: No fractures or subluxation. There is straightening of the cervical lordosis. Minimal anterol isthesis is demonstrated at C3-C4. Visualized superior ribs are intact. Soft tissues: Prevertebral soft tissues are normal in thickness. No paravertebral hematomas. No ap ical pneumothoraces. IMPRESSION: 1. No fracture or subluxation. Reviewed by: Iftikhar Laura MD on 06/01/2022 9:36 PM PST Approved by: Iftikhar Laura MD on 06/01/2022 9:36 PM PST Station ID: [id number]
--- NOTE | 2022-06-01 21:43 | CT Report ---
PROCEDURE: THORACIC SPINE WO INDICATIONS: fall, back inj TECHNIQUE: Noncontrast 3 mm thick sections acquired through the region of interest in the thoracic spine. Sagit moses and coronal reformats were then constructed. For radiation dose reduction, the following was used : automated exposure control, adjustment of mA and/or kV according to patient size. COMPARISON: Concurrent CT of the lumbar spine. FINDINGS: Image quality: Excellent. Bones: There is preserved overall bony alignment. There is an acute comminuted compression fracture of the T12 vertebral body along the superior and inferior endplates involving the anterior column. T here is loss of height of up to approximately 40%. No which most fragments in the spinal canal. No as sociated kyphosis. No suspicious sclerotic or lytic bony lesions. Central spinal canal is of normal overall caliber. Soft tissues: No paravertebral masses or hematomas. Visualized posteromedial lungs appear clear. IMPRESSION: 1. Compression fracture of the T12 vertebral body as described. No associated spinal canal narrowing. Reviewed by: Iftikhar Laura MD on 06/01/2022 9:42 PM [facility] Approved by: Iftikhar Laura MD on 06/01/2022 9:42 PM PST Station ID: [id number]
--- NOTE | 2022-06-01 21:48 | CT Report ---
PROCEDURE: LUMBAR SPINE WO INDICATIONS: back inj/fall from horse TECHNIQUE: Noncontrast 3 mm thick sections acquired from the T12 level to the sacrum. Sagittal and coronal refo rmats were constructed. For radiation dose reduction, the following was used: automated exposure co ntrol, adjustment of mA and/or kV according to patient size. COMPARISON: Concurrent CT studies of the thoracic spine and pelvis. FINDINGS: Image quality: Excellent. Bones: There is transitional anatomy at the lumbosacral junction with sacralization of L5 and a ira mentary disc at L5-S1. There is preserved bony alignment. There is an acute compression fracture of the T12 vertebral body along the superior and inferior endplates with up to approximately 40% loss of height centrally. Fracture involves the anterior column. No retropulsed fragments in the spinal marco antonio l. More inferiorly, there is a slightly angulated buckle fracture of the sacrum anteriorly at the lev el of S3. No suspicious lytic or blastic bony lesions. Central spinal caliber is of normal overall c aliber. No pars defects. T12-L1: Normal in appearance. L1-L2: Normal in appearance. L2-L3: Normal in appearance. L3-L4: Normal in appearance. L4-L5: There is a small broad-based disc bulge with minimal spinal canal narrowing and minimal right neuroforaminal narrowing. L5-S1: There is a rudimentary intervertebral disc. Soft tissues: No retroperitoneal masses or hematomas. Visualized aorta is normal in caliber. IMPRESSION: 1. Compression fracture of the T12 vertebral body as described. 2. Mild buckle fracture of the sacrum at the level of S3. Reviewed by: Iftikhar Laura MD on 06/01/2022 9:47 PM PST Approved by: Iftikhar Laura MD on 06/01/2022 9:47 PM PST Station ID: [id number]
--- NOTE | 2022-06-01 21:55 | CT Report ---
PROCEDURE: PELVIS WO INDICATIONS: back inj/fall from horse TECHNIQUE: Noncontrast 3 mm axial sections acquired through the bony pelvis, with coronal and sagittal reformatt ing. For radiation dose reduction, the following was used: automated exposure control, adjustment of mA and/or kV according to patient size. COMPARISON: Concurrent CT of the lumbar spine. FINDINGS: Image quality: Excellent. Bones: There is transitional anatomy at the lumbosacral junction with sacralization of L5 and a ira mentary disc at L5-S1. There is a slightly angulated mild buckle fracture of the sacrum at the level of S3. The hips demonstrate no fracture or dislocation. Soft tissues: No discrete hematoma collections. No intraperitoneal free fluid within the visualized pelvis. There is minimal presacral fat stranding at the level of S3. IMPRESSION: 1. Slightly angulated mild buckle fracture of the sacrum at the level of S3. Reviewed by: Iftikhar Vallejo MD on 06/01/2022 9:53 PM PST Approved by: Iftikhar Vallejo MD on 06/01/2022 9:53 PM PST Station ID: [id number]
[2022-06-01] MEDS ORDERED: fentaNYL 50 MCG PATCH TOP SCH ×2 (22:00→23:00)
[2022-06-01] MEDS ORDERED: diazePAM 5 MG TABLET PO STA (22:15)
[2022-06-01] MEDS ORDERED: ACETAMINOPHEN 325 MG TABLET PO STA (23:51)
[2022-06-01] MEDS ORDERED: fentaNYL PCA 500 MCG IV PRN (23:58)
[2022-06-02] MEDS ORDERED: fentaNYL 100 MCG/2 ML VIAL IVP STA (00:06)
--- NOTE | 2022-06-02 00:06 | ED Physician Documentation ---
ED Addendum - Addendum Addendum: 06/02/22 00:05 Patient endorsed to me by Dr. Archer awaiting callback from [facility] and pain management. in brief, 51yF p/w T12 compression fracture and sacral fracture s/p fall from horse. She is still endorsing pain 5/10, requesting additional medication. Unfortunately we have no [facility] beds available for admission so patient will board in the ED for pain management. After discussion with her spouse and my colleague Dr. Stephens, we will obtain PRECISION AGRICULTURE SPECIALIST pump for overnight administration of analgesia. Plan to endorse to daytime colleague pending patient pain control. 06/02/22 00:06 06/02/22 00:17 06/02/22 06:23 NAEON. Patient required significant analgesia with IV fentanyl PRECISION AGRICULTURE SPECIALIST but tapered down over the course of the night. Oral valium administered for muscle spasm. Tylenol, zofran and lidocaine patch provided this morning. Plan to endorse to Dr. Mckeon at 7am shift change. Likely discharge later this morning versus admission for pain control.
[2022-06-02] MEDS ORDERED: diazePAM INJ 5 MG/ML SYRINGE IVP STA (00:22)
[2022-06-02] MEDS ORDERED: hydrOXYzine PAMOATE 25 MG CAPSULE PO STA ×2 (00:48→01:33)
[2022-06-02] MEDS ORDERED: diazePAM INJ 5 MG/ML SYRINGE IVP PRN (01:11)
[2022-06-02] MEDS ORDERED: fentaNYL 100 MCG/2 ML VIAL ONE ×2 (01:13→01:21)
[2022-06-02] MEDS ORDERED: diazePAM 5 MG TABLET PO PRN ×2 (01:48→03:56)
[2022-06-02] MEDS ORDERED: ONDANSETRON ODT 4 MG TABLET TL STA (06:13)
[2022-06-02] MEDS ORDERED: ACETAMINOPHEN 325 MG TABLET PO STA ×2 (06:14→10:03)
[2022-06-02] MEDS ORDERED: LIDOCAINE PATCH 5% TOP STA (06:14)
[2022-06-02] MEDS ORDERED: MECLIZINE 12.5 MG TABLET PO STA ×2 (06:36→12:09)
[2022-06-02] MEDS ORDERED: SODIUM CHLORIDE 0.9% 500 ML IV STA (08:06)
--- NOTE | 2022-06-02 08:10 | ED Physician Documentation ---
ED Addendum - Addendum Addendum: 06/02/22 08:06 Pt received in sign out. Has been on fentanyl DISPLAY MANAGER, fentanyl patch, valium, hydroxyzine. Reports pain at fracture site is controlled but has pain elsewhere that she is worried about. Reports h/o fibromyalgia and daily headaches which are also currently present. Has not had much PO overnight. Pt reports concerns about mobilizing and worried she is going to fall. Spouse (Dr. Stephens) at bedside has also noted periods of drowsiness with medications overnight. DIscussed plan to take off one fentanyl patch as she has 2 on. Discussed with RN. Will give small fluid bolus and continue to reassess. No inpatient beds available currently. Patient still having significant pain requiring boluses from her DISPLAY MANAGER pump. Discussed the case with admitting hospitalist, Dr. Almaguer who will admit for further management. Departure - Departure Disposition: ED Place in Observation Clinical Impression: T12 compression fracture Qualifiers: Encounter type: initial encounter Qualified Code(s): S22.080A - Wedge compression fracture of T11-T12 vertebra, initial encounter for closed fracture Sacral fracture, closed Qualifiers: Encounter type: initial encounter Zone of sacrum fracture: unspecified portion of sacrum Qualified Code(s): S32.10XA - Unspecified fracture of sacrum, initial encounter for closed fracture Fall from horse Qualifiers: Encounter type: initial encounter Qualified Code(s): V80.010A - Animal-rider injured by fall from or being thrown from horse in noncollision accident, initial encounter Condition: Stable Instructions: ED Fx Comp Vertebral Prescriptions: HYDROmorphone [Dilaudid] 2 mg PO Q4H #14 tablet fentaNYL 12 MCG PATCH [Duragesic 12mcg patch] 12 mcg TOP Q3D #3 patch diazePAM [Valium] 5 - 10 mg PO TID PRN #15 tablet PRN Reason: Spasms
[2022-06-02] MEDS ORDERED: ONDANSETRON 4 MG/2 ML VIAL IVP STA ×2 (08:32→13:52)
[2022-06-02] MEDS ORDERED: hydrOXYzine PAMOATE 25 MG CAPSULE PO PRN (10:27)
[2022-06-02] MEDS ORDERED: ACETAMINOPHEN 325 MG TABLET PO PRN (15:43)
[2022-06-02] MEDS ORDERED: SODIUM CHLORIDE FLUSH 0.9% 10 ML SYRINGE IVP PRN (15:43)
[2022-06-02] MEDS ORDERED: ONDANSETRON 4 MG/2 ML VIAL IVP PRN (15:43)
[2022-06-02] MEDS ORDERED: fentaNYL PCA 500 MCG IV PRN ×2 (15:46→20:48)
[2022-06-02] MEDS ORDERED: CYCLOBENZAPRINE 10 MG TABLET PO PRN (15:48)
--- NOTE | 2022-06-02 15:56 | HISTORY & PHYSICAL EXAMINATION ---
Chief Complaint - Chief Complaint Chief Complaint: Fell off horse, back pain History of Present Illness - Admitted From Admitted From:: ED - History Obtained From Records Reviewed: [facility] History obtained from: ED provider and the patient and her (who is an MD) - History of Present Illness HPI Comment/Other: This is a 51-year-old female with a history of chronic headaches (followed by a Neurologist) and has allergies to multiple meds that cause hives or a rash. The patient fell off of a horse riding bareback. She presented to the emergency room complaining of severe back pain. She was found to have compression fracture of T12 and a fracture of her S3 vertebrae and also has a bulging disc at L4-L5. Head CT was neg. She was started on pain medications in the ED with fentanyl patch then a second fentanyl patch was added. These did not provide adequate pain control and she has been started on a fentanyl drip via a GIFT SHOP MANAGER pump. She also needed several doses of Valium for muscle spasm. With this combination, she did have some hypersomnolence and the fentanyl patches have been removed. She also had nausea (possibly from the narcotics), and required iv antiemetics. The ED provider reached out to the trauma team at [facility] and they did not feel she needed transfer for any surgery. The ED provider then reached out to me on the Hospitalist team and we discussed admitting this pt to Inpatient status for treatment of severe pain caused by the traumatic results of falling off a horse, especially given her significant allergic reactions to some narcotics. Inpatient status is planned since she has not achieved sufficient pain control even with adjusting her medications in the ED, and she needs opioid treatment since non-opioids like NSAIDs and Tylenol, did not give her pain control. 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 Social History Notes: Patient never smoked cigarettes, she does not drink alcohol. She lives with her (who is an ER doctor). - Substance History Use: Uses substance without health or social issues: NONE - POLST Patient has POLST: No Meds/Allgy - Home Medications Home Medications: Ambulatory Orders Medication Instructions Recorded Confirmed Promethazine [Phenergan] 25 mg PO Q6H PRN #30 tab 07/14/18 polyethylene glycoL 3350 [Miralax] 17 gm PO DAILY PRN #1 bottle 07/14/18 traMADol [Ultram] 50 mg PO Q6H PRN #30 tablet 07/14/18 HYDROmorphone [Dilaudid] 2 mg PO Q4H PRN #14 tablet 11/25/18 HYDROmorphone [Dilaudid] 2 mg PO Q4H #14 tablet 06/02/22 diazePAM [Valium] 5 - 10 mg PO TID PRN #15 tablet 06/02/22 fentaNYL 12 MCG PATCH [Duragesic 12 mcg TOP Q3D #3 patch 06/02/22 12mcg patch] - Allergies Allergies/Adverse Reactions: Allergies Allergy/AdvReac Type Severity Reaction Status Date / Time amoxicillin Allergy Rash Verified 06/01/22 19:44 clindamycin Allergy Rash Verified 06/01/22 19:44 diphenhydramine Allergy Hives Verified 06/01/22 19:44 [From Benadryl] ketamine Allergy Hallucinati Verified 06/01/22 19:44 ons oxycodone [From Percocet] Allergy Rash Verified 06/01/22 19:44 Penicillins Allergy Rash Verified 06/01/22 19:44 Review of Systems - Musculoskeletal Musculoskeletal: reports: Back pain, Stiffness - All Other Systems All Other Systems: reports: Reviewed and negative Exam - Vital Signs Reviewed Vital Signs: Yes Vital Signs: Vital Signs x48h Pulse Resp BP Pulse Ox O2 Flow Rate 06/02/22 15:00 73 12 93/72 100 2 06/02/22 14:29 100 2 06/02/22 14:00 65 16 108/58 L 98 1 06/02/22 12:11 77 20 106/59 L 98 06/02/22 09:00 74 13 104/63 100 2 - Physical Exam General Appearance: positive: No acute distress, Lethargic (Answers with whispering, eyes remain closed) Eyes Bilateral: positive: Normal inspection, No lid inflammation ENT: positive: ENT inspection nml, No signs of dehydration Neck: positive: Nml inspection, No JVD Respiratory: positive: No respiratory distress, Breath sounds nml Cardiovascular: positive: Regular rate & rhythm, No murmur Abdomen: positive: Non-tender, Nml bowel sounds, No distention Skin: positive: Warm, Dry Extremities: positive: Non-tender, No pedal edema Neurologic/Psychiatric: positive: Oriented x3, Motor nml, Other (Somnolent. No abnormal sens in saddle distribution.) Conclusion/Plan - Problem List (1) T12 compression fracture Conclusion/Plan: This is causing pain, not alleviated with NSAIDs or Tylenol, or Fentanyl patches. Plan: We will continue the GIFT SHOP MANAGER pump using fentanyl. We will try to transition over to oral pain control. The is able to provide us with what she can tolerate without causing a rash Qualifiers: Encounter type: initial encounter Qualified Code(s): S22.080A - Wedge compression fracture of T11-T12 vertebra, initial encounter for closed fracture (2) Sacral fracture, closed Conclusion/Plan: As in #1 Qualifiers: Encounter type: initial encounter Zone of sacrum fracture: unspecified portion of sacrum Qualified Code(s): S32.10XA - Unspecified fracture of sacrum, initial encounter for closed fracture (3) Fall from horse Conclusion/Plan: As per Hx. Qualifiers: Encounter type: initial encounter Qualified Code(s): V80.010A - Animal- rider injured by fall from or being thrown from horse in noncollision accident, initial encounter (4) Chronic headaches Conclusion/Plan: As per history. These are not migraines. She is on several medications for pain control, is followed by neurologist for this. Plan: Will eventually resume all her usual medications and management, as we decrease the GIFT SHOP MANAGER pump (5) Mult drug allergies She is a long list of true allergies that give her hives or rash Plan: We we will need to be careful what is chosen for oral medicines for pain control as she comes off the GIFT SHOP MANAGER pump. - Lab Results Fish Bones: 06/03/22 05:25 06/03/22 05:25 - Diagnostic Imaging Results Diagnostic Imaging Results: positive: Final report reviewed - Other Other Results/Comments: Attestation: The patient is expected to be discharged or transferred to another facility within 96 hours: Yes.
[2022-06-02] MEDS: PROCHLORPERAZINE 10 MG/2 ML VIAL IVP PRN ×2 (16:26→22:36)
[2022-06-02] MEDS: SODIUM CHLORIDE FLUSH 0.9% 10 ML SYRINGE IVP SCH (16:28)
[2022-06-02] MEDS: D5.45NS W/20 MEQ KCL 1,000 ML IV SCH (17:03)
[2022-06-02] MEDS ORDERED: NALOXONE 0.4 MG/ML VIAL IVP PRN (20:50)
[2022-06-03] MEDS: PROCHLORPERAZINE 10 MG/2 ML VIAL IVP PRN (04:33)
[2022-06-03] MEDS: SODIUM CHLORIDE FLUSH 0.9% 10 ML SYRINGE IVP SCH ×2 (04:34→09:01)
[2022-06-03 05:50] LABS: BASOPHILS % (AUTO) 0.6 %; EOSINOPHILS # (AUTO) 0.3 10^3/uL (0.0-0.7); EOSINOPHILS % (AUTO) 5.9 %; HCT - HEMATOCRIT 36.3 % (37.0-47.0); HGB - HEMOGLOBIN 11.7 g/dL (12.0-16.0); LYMPHOCYTES # (AUTO) 1.3 10^3/uL (1.5-3.5); LYMPHOCYTES % (AUTO) 23.6 %; MEAN CORPUSCULAR HEMOGLOBIN 29.6 pg (27.0-31.0); MEAN CORPUSCULAR HGB CONC 32.2 g/dL (32.0-36.0); MEAN CORPUSCULAR VOLUME 91.9 fL (81.0-99.0); MEAN PLATELET VOLUME 10.4 fL (7.9-10.8); MONOCYTES # (AUTO) 0.4 10^3/uL (0.0-1.0); MONOCYTES % (AUTO) 6.6 %; NEUTROPHILS # (AUTO) 3.3 10^3/uL (1.5-6.6); NEUTROPHILS % (AUTO) 63.1 %; PLT - PLATELET COUNT 212 10^3/uL (130-450); RED BLOOD COUNT 3.95 10^6/uL (4.20-5.40); RED CELL DISTRIBUTION WIDTH 12.2 % (12.0-15.0); WHITE BLOOD COUNT 5.3 x10^3/uL (4.8-10.8)
[2022-06-03 06:05] LABS: ALBUMIN 3.6 g/dL (3.2-5.5); BILIRUBIN,DIRECT 0.1 mg/dL (0.1-0.5); BILIRUBIN,TOTAL 0.4 mg/dL (0.2-1.0); CALCIUM 9.3 mg/dL (8.5-10.3); CREATININE 0.7 mg/dL (0.4-1.0); MAGNESIUM 1.8 mg/dL (1.7-2.8); PHOSPHORUS 3.8 mg/dL (2.5-4.6); POTASSIUM 4.2 mmol/L (3.5-5.0)
[2022-06-03] MEDS ORDERED: polyethylene glycoL 3350 17 GM PACKET PO SCH (09:00)
[2022-06-03] MEDS: D5.45NS W/20 MEQ KCL 1,000 ML IV SCH (09:20)
[2022-06-03] MEDS ORDERED: traMADol 50 MG TABLET PO PRN (10:26)
[2022-06-03] MEDS ORDERED: HYDROmorphone 2 MG TABLET PO PRN (10:26)
[2022-06-03] MEDS ORDERED: KETOROLAC 10 MG TABLET PO PRN (10:28)
[2022-06-03] MEDS ORDERED: SCOPOLAMINE PATCH TOP SCH (11:00)
--- NOTE | 2022-06-03 12:32 | PHARMACY PROGRESS NOTE ---
- Best Possible Medication History Admit Date and Time: 06/02/22 1543 Processed by: Pharmacy Medication History completed: Yes Patient Interview: Completed Secondary Source(s): Insurance records (PT WAS A GOOD HISTORIAN ALTHOUGH SEEMED GROGGY PROBABLY FROM THE PAIN MEDS. SHE KNEW ALL HER MEDS AND DOSES WELL, WITH THE EXCEPTION OF THE HERBALS AND SUPPLEMENTS.) As the person ultimately responsible for medication therapy, providers are able to order a medication from an existing home medication list in [facility] via the "Reconcile Routine" prior to Confirmation of that medication by system support developer. Such practice is discouraged except when the physician, in their clinical judgment, deems that a medical need exists for a medication without regard to previous use.
--- NOTE | 2022-06-03 15:19 | Discharge Plan ---
Discharge Plan Problem Reviewed?: Yes Disposition: Home, Self Care Condition: Fair Prescriptions: HYDROmorphone [Dilaudid] 2 mg PO Q6HR PRN #12 tab PRN Reason: Severe Pain Cyclobenzaprine [Flexeril] 10 mg PO TID PRN #12 tab PRN Reason: Spasms Diet: Regular Activity Restrictions: Activity as Tolerated Shower Restrictions: No Driving Restrictions: Yes Instruction Topics: ED Fx Comp Vertebral Health Concerns: You were hospitalized to achieve pain control after you suffered trauma including compression fracture of your spinal vertebrae, after you fell off the horse while horseback riding. You needed a CLINIC MGR pump which was giving you fentanyl, a narcotic, to control the pain. Fentanyl gave you side effects of nausea and dizziness, which then needed medicines to treat. Because of your many allergies, we had to gingerly transition you to oral pain medicine. You are being discharged home today and prescriptions have been ordered for you to use oral Dilaudid for pain control, and oral Flexeril for muscle spasms. You may also use some of the other medicines which you have at home like Toradol, Tylenol, Motrin, translingual Zofran and you may keep this current Scopolamine patch on (for 72 hours total) to help with dizziness and nausea, but no more patches were prescribed. Please stay well-hydrated. Any equipment that is needed to help you as you recover is highly recommended for you to use. Please get up and move around to prevent blood clots. If you have new or worsening symptoms, call your PCP for advice, or come to the ER. Plan of Treatment: As above. You may resume all your usual pre-hospital medications that you also took. Care Goals: Improvement in symptoms and stabilization are the goals. Assessment: The patient and at bedside understand and are agreeable with the plan. No Smoking: If you smoke, Please STOP! Call for help.
--- NOTE | 2022-06-03 15:29 | DISCHARGE SUMMARY ---
Discharge Summary Admit Date: 06/02/22 Discharge Date: 06/03/22 Discharging Provider: Dr Paredes Primary Care Provider: Dr Loza Condition at Discharge: Fair Discharge Disposition: 01 Home, Self Care - HPI History of Present Illness: This is a 51-year-old female with a history of chronic headaches (followed by a Neurologist) and has allergies to multiple meds that cause hives or a rash. The patient fell off of a horse while riding bareback. She presented to the emergency room complaining of severe back pain. She was found to have compression fracture of T12 and a fracture of her S3 vertebrae and also has a bulging disc at L4-L5. Head CT was neg. She was started on pain medications in the ED with fentanyl patch then a second fentanyl patch was added. These did not provide adequate pain control and she has been started on a fentanyl drip via a PATTERN AND CHAIN MAKER pump. She also needed several doses of Valium for muscle spasm. With this combination, she did have some hypersomnolence and the fentanyl patches have been removed. She also had nausea (possibly from the narcotics), and required iv antiemetics. The ED provider reached out to the trauma team at [facility] and they did not feel she needed transfer for any surgery. The ED provider then reached out to me on the Hospitalist team and we discussed admitting this pt to Inpatient status for treatment of severe pain caused by the traumatic results of falling off a horse, especially given her significant allergic reactions to some narcotics. Inpatient status is planned since she has not achieved sufficient pain control even with adjusting her medications in the ED, and she needs opioid treatment since non-opioids like NSAIDs and Tylenol, did not give her pain control. - HOSPITAL COURSE Hospital Course: (1) T12 compression fracture This was the major cause of her back pain and muscle spasms, not alleviated with NSAIDs or Tylenol, or Fentanyl patches. She was put on a Fentanyl drip via a PATTERN AND CHAIN MAKER pump. We then needed to gingerly transition her from PATTERN AND CHAIN MAKER pump narcotic to oral meds to achieve pain control without causing an allergic reaction. We unexpectedly were able to achieve pain control the following day, switching to oral Flexeril, oral Dilaudid and oral Toradol, and she was discharged home on these, needing support and assistance from her and family with plan to use DME, which was advised. She did develop dizziness and nausea from the iv narcotics, which needed to be treated with IV antiemetics and even a Scopolamine patch while here. She had TL Zofran at home to use prn, she said. (2) Sacral fracture, closed, unspecified portion of sacrum As in #1 (3) Fall from horse As per Hx. (4) Chronic headaches As per history. She was ordered to continue her Lamotrigene and Nortryptyline. (5) Mult drug allergies She has a long list of true allergies that give her hives or rash. We needed to carefully transition her from PATTERN AND CHAIN MAKER pump iv narcotic to oral meds to achieve pain control without causing an allergic reaction. - ALLERGIES Allergies/Adverse Reactions: Allergies Allergy/AdvReac Type Severity Reaction Status Date / Time amoxicillin Allergy Rash Verified 06/01/22 19:44 clindamycin Allergy Rash Verified 06/01/22 19:44 diphenhydramine Allergy Hives Verified 06/01/22 19:44 [From Benadryl] ketamine Allergy Hallucinati Verified 06/01/22 19:44 ons oxycodone [From Percocet] Allergy Rash Verified 06/01/22 19:44 Penicillins Allergy Rash Verified 06/01/22 19:44 - MEDICATIONS Home Medications: Ambulatory Orders Medication Instructions Recorded Confirmed Acetaminophen [Tylenol] 650 mg PO Q4HR PRN tab 06/03/22 Ascorbic Acid [Vitamin C] 2,000 mg PO DAILY 06/03/22 06/03/22 Celastrol 1 each PO DAILY 06/03/22 06/03/22 Celecoxib [Celebrex] 200 mg PO DAILY PRN 06/03/22 06/03/22 Cholecalciferol [Vitamin D3] 5,000 unit PO DAILY 06/03/22 06/03/22 Corydalis 1 each PO DAILY 06/03/22 06/03/22 Curcumin-Phosphatidylcholine 500 mg PO DAILY 06/03/22 06/03/22 [Curcumin Phytosome] Cyclobenzaprine [Flexeril] 10 mg PO TID PRN #12 tab 06/03/22 HYDROmorphone [Dilaudid] 2 mg PO Q6HR PRN #12 tab 06/03/22 Ketorolac [Toradol] 10 mg PO QID PRN 06/03/22 06/03/22 Levothyroxine [Synthroid] 50 mcg PO QDAC 06/03/22 06/03/22 Liothyronine [Cytomel] 10 mcg PO QDAC 06/03/22 06/03/22 Magnesium 250 mg PO DAILY 06/03/22 06/03/22 Meloxicam [Mobic] 15 mg PO DAILY PRN 06/03/22 06/03/22 Nortriptyline [Pamelor] 10 mg PO HS 06/03/22 06/03/22 Nortriptyline [Pamelor] 50 mg PO HS 06/03/22 06/03/22 Ondansetron HCl 4 mg PO DAILY PRN 06/03/22 06/03/22 Riboflavin (Vitamin B2) 400 mg PO DAILY 06/03/22 06/03/22 [Riboflavin] Zolpidem Tartrate [Zolpidem 12.5 mg PO HS PRN 06/03/22 06/03/22 Tartrate ER] clonazePAM [Clonazepam] 0.5 mg PO BID PRN 06/03/22 06/03/22 lamoTRIgine [Lamictal] 112 mg PO DAILY 06/03/22 06/03/22 lamoTRIgine [Lamictal] 150 mg PO HS 06/03/22 06/03/22 valACYclovir [Valtrex] 500 mg PO DAILY 06/03/22 06/03/22 - PHYSICAL EXAM AT DISCHARGE General Appearance: positive: Mild distress (in back) Eyes Bilateral: positive: Normal inspection, No lid inflammation ENT: positive: ENT inspection nml, No signs of dehydration Neck: positive: Nml inspection, No JVD Respiratory: positive: No respiratory distress, Breath sounds nml Cardiovascular: positive: Regular rate & rhythm, No murmur Abdomen: positive: Non-tender, Nml bowel sounds, No distention Skin: positive: Warm, Dry Extremities: positive: Non-tender, No pedal edema Neurologic/Psychiatric: positive: Oriented x3, Motor nml - LABS Result Diagrams: 06/03/22 05:25 06/03/22 05:25 - DIAGNOSTIC IMAGING Diagnostic Imaging Results: Final report reviewed - FOLLOW UP Follow Up: See PCP for further management. - TIME SPENT Time Spent in Discharge (Minutes): 25
[2022-06-03 15:43] VITALS: BP 94/58
== END 2022-06-03 16:15 | disposition home or self-care (01) | DRG 948 ==
LOC: EDUNIT# → ED 19:32 → MS2 06-02 15:43
PROVIDERS: ADMIT Internal Medicine; ATTEND Internal Medicine
DX: G89.11 Acute pain due to trauma (principal); S32.19XA Other fracture of sacrum, initial encounter for closed fracture; S22.080A Wedge compression fracture of T11-T12 vertebra, initial encounter for closed fracture; V80.010A Animal-rider injured by fall from or being thrown from horse in noncollision accident, initial encounter; G44.89 Other headache syndrome; R42 Dizziness and giddiness; R11.0 Nausea; T40.605A Adverse effect of unspecified narcotics, initial encounter; Y92.239 Unspecified place in hospital as the place of occurrence of the external cause; Z88.5 Allergy status to narcotic agent; T42.4X5A Adverse effect of benzodiazepines, initial encounter; T40.415A Adverse effect of fentanyl or fentanyl analogs, initial encounter; F19.982 Other psychoactive substance use, unspecified with psychoactive substance-induced sleep disorder; M51.36 Other intervertebral disc degeneration, lumbar region; Z20.822 Contact with and (suspected) exposure to COVID-19
CPT/HCPCS: 36415; 72125; 72128; 72131; 72192; 80048; 80076; 83735; 84100; 85025; 85610; 87635; 96374; 96375; 96376; 97161; 97165; 99284; 99285; A9270; J3490

== ENCOUNTER 2023-05-21 08:15 | Outpatient (CLI) | payer BC ==
[2023-05-21 15:27] LABS: BASOPHILS # (AUTO) 0.1 10^3/uL (0.0-0.1); EOSINOPHILS # (AUTO) 0.1 10^3/uL (0.0-0.7); EOSINOPHILS % (AUTO) 2.7 %; HGB - HEMOGLOBIN 12.5 g/dL (12.0-16.0); LYMPHOCYTES # (AUTO) 2.3 10^3/uL (1.5-3.5); LYMPHOCYTES % (AUTO) 46.6 %; MEAN CORPUSCULAR HGB CONC 31.3 g/dL (32.0-36.0); MEAN CORPUSCULAR VOLUME 95.9 fL (81.0-99.0); MEAN PLATELET VOLUME 11.2 fL (7.9-10.8); MONOCYTES # (AUTO) 0.4 10^3/uL (0.0-1.0); MONOCYTES % (AUTO) 8.5 %; PLT - PLATELET COUNT 246 10^3/uL (130-450); RED BLOOD COUNT 4.17 10^6/uL (4.20-5.40); RED CELL DISTRIBUTION WIDTH 12.6 % (12.0-15.0); WHITE BLOOD COUNT 4.9 x10^3/uL (4.8-10.8)
[2023-05-21 15:49] LABS: ALBUMIN 4.3 g/dL (3.2-5.5); ALKALINE PHOSPHATASE 64 IU/L (42-121); ALT ALANINE AMINOTRANSFERASE 17 IU/L (10-60); AMYLASE 45 U/L (28-100); AST ASPARTATE AMINOTRANSFERASE 20 IU/L (10-42); BILIRUBIN,TOTAL 0.4 mg/dL (0.2-1.0); BUN - BLOOD UREA NITROGEN 12 mg/dL (6-20); CALCIUM 9.7 mg/dL (8.5-10.3); CARBON DIOXIDE - CO2 32 mmol/L (21-32); CHLORIDE 103 mmol/L (101-111); CHOL/HDL RATIO 3.2 (<4.4); CHOLESTEROL 209 mg/dL; CREATININE 0.8 mg/dL (0.6-1.3); GFR - MDRD 75 (>89); GLUCOSE 78 mg/dL (74-104); HDL CHOLESTEROL 65 mg/dL; LDL CHOLESTEROL,CALCULATED 123 mg/dL; LDL/HDL RATIO 1.9 (<4.4); LIPASE 30 U/L (11-82); POTASSIUM 3.9 mmol/L (3.5-4.5); SODIUM 139 mmol/L (135-145); TOTAL PROTEIN 6.4 g/dL (6.4-8.9); TRIGLYCERIDES 104 mg/dL (48-352); VLDL CHOLESTEROL 21 mg/dL
[2023-05-21 16:13] LABS: THYROID STIMULATING HORMONE 3.01 uIU/mL (0.34-5.60)
[2023-05-21 20:28] LABS: ESTIMATED AVERAGE GLUCOSE 94 mg/dL (70-100); HEMOGLOBIN A1c% 4.9 % (4.27-6.07)
== END 2023-05-21 08:16 | disposition home or self-care (01) ==
LOC: LAB.S 08:15
PROVIDERS: ATTEND Nurse Practitioner
DX: R10.84 Generalized abdominal pain (principal); M79.7 Fibromyalgia
CPT/HCPCS: 36415; 80053; 80061; 81599; 82150; 83036; 83690; 83721; 84140; 84260; 84443; 85025

== ENCOUNTER 2023-11-11 07:19 | Day surgery (SDC) | payer OTHER ==
[2023-11-11] MEDS: LACTATED RINGERS 1,000 ML IV ONE (07:32)
[2023-11-11] MEDS: PROPARACAINE 0.5% OPHTH DROPS 15 ML ONE (07:50)
[2023-11-11] MEDS: KETOROLAC 0.45% OPHTH DROPS ONE (07:51)
[2023-11-11] MEDS: CYCLOPENTOLATE 1% OPHTH DROPS 2 ML ONE (07:52)
[2023-11-11] MEDS: PHENYLEPHRINE 2.5% OPHTH 2 ML DROPS ONE (07:53)
--- NOTE | 2023-11-11 08:22 | ANESTHESIA ---
Pre-Anesthesia VS, & Labs - Diagnosis R nuclear cataract - Procedure R cataract extraction with IOL Vital Signs: Temp Pulse Resp BP Pulse Ox O2 Flow Rate 36.2 C L 77 18 119/74 100 11/11/23 07:37 11/11/23 07:37 11/11/23 07:37 11/11/23 07:37 11/11/23 07:37 Height: 5 ft 4 in Weight (kg): 64 kg Body Mass Index: 24.2 BMI Classification: Normal - NPO >8 hours - Is Patient ?: No - Lab Results Lab results reviewed: Yes Home Medications and Allergies Ascorbic Acid [Vitamin C] 2,000 mg PO DAILY 06/03/22 Celecoxib [Celebrex] 200 mg PO DAILY PRN 06/03/22 Cholecalciferol [Vitamin D3] 5,000 unit PO DAILY 06/03/22 Corydalis 1 each PO DAILY 06/03/22 Curcumin-Phosphatidylcholine [Curcumin Phytosome] 500 mg PO DAILY 06/03/22 Ketorolac [Toradol] 10 mg PO QID PRN 06/03/22 Levothyroxine [Synthroid] 50 mcg PO QDAC 06/03/22 Liothyronine [Cytomel] 10 mcg PO QDAC 06/03/22 Magnesium 250 mg PO DAILY 06/03/22 Meloxicam [Mobic] 15 mg PO DAILY PRN 06/03/22 Nortriptyline [Pamelor] 50 mg PO HS 06/03/22 Ondansetron HCl 4 mg PO DAILY PRN 06/03/22 Riboflavin (Vitamin B2) [Riboflavin] 400 mg PO DAILY 06/03/22 Zolpidem Tartrate [Zolpidem Tartrate ER] 12.5 mg PO HS PRN 06/03/22 lamoTRIgine [Lamictal] 112 mg PO DAILY 06/03/22 lamoTRIgine [Lamictal] 150 mg PO HS 06/03/22 valACYclovir [Valtrex] 500 mg PO DAILY 06/03/22 Allergies/Adverse Reactions: Allergies Allergy/AdvReac Type Severity Reaction Status Date / Time amoxicillin Allergy Rash Verified 06/01/22 19:44 clindamycin Allergy Rash Verified 06/01/22 19:44 diphenhydramine Allergy Hives Verified 06/01/22 19:44 [From Benadryl] ketamine Allergy Hallucinati Verified 06/01/22 19:44 ons oxycodone [From Percocet] Allergy Rash Verified 06/01/22 19:44 Penicillins Allergy Rash Verified 06/01/22 19:44 Anes History & Medical History - Anesthetic History Anesthesia Complications: reports: No previous complications Family history of Anesthesia Complications: Denies Family history of Malignant Hyperthermia: Denies - Medical History Cardiovascular: reports: None Pulmonary: reports: None Gastrointestinal: reports: None Urinary: reports: None Neuro: reports: Headaches Musculoskeletal: reports: None Endocrine/Autoimmune: reports: HyPOthyroidism Blood Disorders: reports: None Skin: reports: None Smoking Status: Never smoker - Surgical History General: reports: Appendectomy Gynecologic: reports: Other Exam General: Alert, Oriented x3, Cooperative Dental: WNL Mouth Openin Fingerbreadth Neck Mobility: Normal Mallampati classification: II Thyromental Distance: 4-6 cm Respiratory: Lungs clear, Normal breath sounds, No respiratory distress Cardiovascular: Regular rate Neurological: Normal speech Mental/Cognitive Status: Alert/Oriented X3, Normal for patient Plan Anesthesia Type: MAC Consent for Procedure(s) Verified and Reviewed: Yes Code Status: Attempt Resuscitation ASA classification: 2-Mild systemic disease Is this case an emergency?: No
[2023-11-11] MEDS ORDERED: EPINEPHrine 1 MG/ML AMP ONE (08:24)
[2023-11-11] MEDS ORDERED: BRIMONIDINE 0.2% OPHTH DROPS 5 ML ONE (08:24)
[2023-11-11] MEDS ORDERED: BSS/LIDOCAINE/EPINEPHRINE 1 ML VIAL ONE (08:24)
[2023-11-11] MEDS ORDERED: TRIAMCIN/MOXIFLOX OPHTHALMIC 0.6 ML VIAL IO ONE (08:24)
[2023-11-11] MEDS ORDERED: TIMOLOL 0.5% OPHTH DROPS ONE (08:24)
[2023-11-11] MEDS ORDERED: MIDAZOLAM 2 MG/2 ML VIAL ONE (08:27)
[2023-11-11] MEDS: BRIMONIDINE 0.2% OPHTH DROPS 5 ML OPTH ONE (08:53)
[2023-11-11] MEDS: EPINEPHrine 1 MG/ML AMP IR ONE (08:53)
[2023-11-11] MEDS: BSS/LIDOCAINE/EPINEPHRINE 1 ML SYRINGE IO ONE (08:54)
[2023-11-11] MEDS: VANCOMYCIN OPHTH (TOPICAL) 10 MG/ML SYRINGE TOP ONE (08:54)
[2023-11-11] MEDS: PROPARACAINE 0.5% OPHTH DROPS 15 ML RIGHTEYE ONE (08:54)
[2023-11-11] MEDS: TIMOLOL 0.5% OPHTH DROPS OPTH ONE (08:54)
[2023-11-11] MEDS: TRIAMCIN/MOXIFLOX OPHTHALMIC 0.6 ML VIAL IO ONE (08:54)
[2023-11-11] MEDS: LACTATED RINGERS 750 ML IV ONE ×2 (09:03→09:57)
[2023-11-11] MEDS ORDERED: KETOROLAC 30 MG/ML VIAL ONE (09:07)
[2023-11-11] MEDS ORDERED: fentaNYL 100 MCG/2 ML VIAL ONE (09:07)
--- NOTE | 2023-11-11 09:19 | OPERATIVE REPORT ---
Operative Report - Other Other Information/Narrative: Date of Surgery: 11/11/23 Preop Dx: Visually significant cataract right eye. This was the first cataract surgery. Postop Dx: Same Procedure: Phacoemulsification with posterior chamber toric intraocular lens implant right eye Surgeon: Dr. Rick Constantino Anesthesia: Monitored anesthesia care Complications: None Operative Indications: This is a 53-year-old F with progressive vision loss in the right eye due to 2-3+ nuclear sclerotic cataract. Best corrected visual acuity was 20/70 with glare to 20/800 vision in the right eye. Indications for surgery were: - Overall decrease in vision - Difficulty seeing words on a computer screen - Difficulty reading - Difficulty seeing street signs - Difficulty driving in low light or at night - Difficulty driving at night because of headlights from other vehicles - Difficulty tracking a golf ball The patient was consented at length concerning the risks and benefits of vonda ract surgery after which the patient expressed a desire to proceed with surgery. Operative Procedure: The patients cornea was marked in the pre-surgical area to indicate the axis for the toric intraocular lens. The patient was taken into OR#3 and placed under monitored anesthesia care. A surgical time-out was conducted confirming correct patient, correct procedure, and correct surgical site. The patient was given topical anesthesia and then prepped and draped in the usual sterile fashion. The eye was entered at the 6 and 3 oclock positions. Intracameral Shugarcaine was injected into the anterior chamber followed by a dispersive viscoelastic. A continuous-tear curvilinear capsulorhexis was performed. The nucleus was hydrodissected and phacoemulsified. The cortex was evacuated using automated infusion and aspiration. A cohesive viscoelastic was injected into the capsular bag and a 22.0 diopter toric intraocular lens was inserted into the bag and rotated to axis 076. Infusion and aspiration were used to evacuate the viscoelastic materials from the eye and the IOL was verified to remain on axis. The wounds were hydrated and the eye inflated to physiologic pressure using balanced salt solution. Approximately 0.25ml of a mixture of triamcinolone and moxifloxacin was injected trans- sclerally into the vitreous in the inferotemporal quadrant using a 30 gauge cannula. An additional 0.25ml of a mixture of triamcinolone and moxifloxacin was injected subconjunctivally in the superior quadrant for infection and inflammation prophylaxis. Wound integrity was checked with Weck-Shira sponges and the IOL axis was once again verified to be on the correct axis and centered on the Purkinje reflex. The patient was taken from the operating room in good con dition and given post-op instructions.
--- NOTE | 2023-11-11 09:21 | ANESTHESIA POST OP EVALUATION ---
Anesthesia Post Eval - Post Anesthesia Eval Vitals: Last Vital Signs Temp 36.2 C L 11/11/23 07:37 Pulse 77 11/11/23 07:37 Resp 18 11/11/23 07:37 BP 119/74 11/11/23 07:37 Pulse Ox 100 11/11/23 07:37 O2 Flow Rate CV Function Including HR & BP: Stable Pain Control: Additional Therapies Ordered (Toradol 30mg IV in PACU for c/o 6/10 pain at eye) Nausea & Vomiting: Negative Mental Status: Baseline Respiratory Status: Airway Patent Hydration Status: Satisfactory Anesthesia Complications: None
[2023-11-11 09:23] VITALS: BP 110/58; O2SAT 99
== END 2023-11-11 07:20 | disposition home or self-care (01) ==
LOC: SDS 07:19
PROVIDERS: ATTEND Ophthalmology
DX: H25.11 Age-related nuclear cataract, right eye (principal)
CPT/HCPCS: 66984; A9270; J3490; J7120; V2632; V2787

== ENCOUNTER 2024-01-20 10:23 | Day surgery (SDC) | payer OTHER ==
[2024-01-20] MEDS: LACTATED RINGERS 1,000 ML IV ONE (11:08)
[2024-01-20] MEDS: CYCLOPENTOLATE 1% OPHTH DROPS 2 ML ONE (11:14)
[2024-01-20] MEDS: PROPARACAINE 0.5% OPHTH DROPS 15 ML ONE (11:14)
[2024-01-20] MEDS: PHENYLEPHRINE 2.5% OPHTH 2 ML DROPS ONE (11:14)
[2024-01-20] MEDS: KETOROLAC TROMETHAMINE 0.5% OPHTH DROPS 5 ML ONE (11:14)
--- NOTE | 2024-01-20 11:40 | ANESTHESIA ---
Pre-Anesthesia VS, & Labs - Diagnosis left eye nuclear cataract - Procedure left eye cataract extraction with IOL implant Vital Signs: Temp Pulse Resp BP Pulse Ox O2 Flow Rate 36.1 C L 69 10 L 112/80 100 01/20/24 11:09 01/20/24 11:09 01/20/24 11:09 01/20/24 11:09 01/20/24 11:09 Height: 5 ft 4 in Weight (kg): 66 kg Body Mass Index: 25.0 BMI Classification: Overweight - NPO >8 hours - Is Patient ?: Not Applicable Home Medications and Allergies Ascorbic Acid [Vitamin C] 2,000 mg PO DAILY 06/03/22 Celecoxib [Celebrex] 200 mg PO DAILY PRN 06/03/22 Cholecalciferol [Vitamin D3] 5,000 unit PO DAILY 06/03/22 Corydalis 1 each PO DAILY 06/03/22 Curcumin-Phosphatidylcholine [Curcumin Phytosome] 500 mg PO DAILY 06/03/22 Ketorolac [Toradol] 10 mg PO QID PRN 06/03/22 Levothyroxine [Synthroid] 50 mcg PO QDAC 06/03/22 Liothyronine [Cytomel] 10 mcg PO QDAC 06/03/22 Magnesium 250 mg PO DAILY 06/03/22 Meloxicam [Mobic] 15 mg PO DAILY PRN 06/03/22 Nortriptyline [Pamelor] 50 mg PO HS 06/03/22 Ondansetron HCl 4 mg PO DAILY PRN 06/03/22 Riboflavin (Vitamin B2) [Riboflavin] 400 mg PO DAILY 06/03/22 Zolpidem Tartrate [Zolpidem Tartrate ER] 12.5 mg PO HS PRN 06/03/22 lamoTRIgine [Lamictal] 112 mg PO DAILY 06/03/22 lamoTRIgine [Lamictal] 150 mg PO HS 06/03/22 valACYclovir [Valtrex] 500 mg PO DAILY 06/03/22 Allergies/Adverse Reactions: Allergies Allergy/AdvReac Type Severity Reaction Status Date / Time amoxicillin Allergy Rash Verified 01/20/24 11:17 clindamycin Allergy Rash Verified 01/20/24 11:17 diphenhydramine Allergy Hives Verified 01/20/24 11:17 [From Benadryl] ketamine Allergy Hallucinati Verified 01/20/24 11:17 ons oxycodone [From Percocet] Allergy Rash Verified 01/20/24 11:17 Penicillins Allergy Rash Verified 01/20/24 11:17 Anes History & Medical History - Anesthetic History Anesthesia Complications: reports: No previous complications - Medical History Cardiovascular: reports: None Pulmonary: reports: None Gastrointestinal: reports: None Urinary: reports: None Neuro: reports: Headaches, Migraines Musculoskeletal: reports: None Endocrine/Autoimmune: reports: HyPOthyroidism Blood Disorders: reports: None Skin: reports: None Smoking Status: Never smoker Psychosocial: reports: Alcohol History of Cancer?: No - Surgical History General: reports: Appendectomy Gynecologic: reports: Other Exam General: Alert, Oriented x3, Cooperative, No acute distress Dental: WNL Mouth Openin Fingerbreadth Neck Mobility: Normal Mallampati classification: II Thyromental Distance: 4-6 cm Mental/Cognitive Status: Alert/Oriented X3, Normal for patient Plan Anesthesia Type: MAC Consent for Procedure(s) Verified and Reviewed: Yes Code Status: Attempt Resuscitation ASA classification: 2-Mild systemic disease Is this case an emergency?: No
[2024-01-20] MEDS ORDERED: MIDAZOLAM 2 MG/2 ML VIAL ONE (11:57)
[2024-01-20] MEDS ORDERED: EPINEPHrine 1 MG/ML AMP ONE (12:10)
[2024-01-20] MEDS ORDERED: BRIMONIDINE 0.2% OPHTH DROPS 5 ML ONE (12:11)
[2024-01-20] MEDS ORDERED: TRIAMCIN/MOXIFLOX OPHTHALMIC 0.6 ML VIAL IO ONE (12:11)
[2024-01-20] MEDS ORDERED: BSS/LIDOCAINE/EPINEPHRINE 1 ML VIAL ONE (12:11)
[2024-01-20] MEDS ORDERED: TIMOLOL 0.5% OPHTH DROPS ONE (12:11)
[2024-01-20] MEDS: BRIMONIDINE 0.2% OPHTH DROPS 5 ML OPTH ONE (12:18)
[2024-01-20] MEDS: TIMOLOL 0.5% OPHTH DROPS OPTH ONE (12:19)
[2024-01-20] MEDS: EPINEPHrine 1 MG/ML AMP IR ONE (12:19)
[2024-01-20] MEDS: TRIAMCIN/MOXIFLOX OPHTHALMIC 0.6 ML VIAL IO ONE (12:19)
[2024-01-20] MEDS: PROPARACAINE 0.5% OPHTH DROPS 15 ML EACHEYE ONE (12:19)
[2024-01-20] MEDS: BSS/LIDOCAINE/EPINEPHRINE 1 ML SYRINGE IO ONE (12:19)
[2024-01-20] MEDS: VANCOMYCIN OPHTH (TOPICAL) 10 MG/ML SYRINGE TOP ONE (12:20)
[2024-01-20] MEDS ORDERED: KETOROLAC 30 MG/ML VIAL ONE (12:51)
[2024-01-20] MEDS: LACTATED RINGERS 300 ML IV ONE (12:53)
--- NOTE | 2024-01-20 12:54 | OPERATIVE REPORT ---
Operative Report - Other Other Information/Narrative: Date of Surgery: 01/20/24 Preop Dx: Visually significant cataract left eye. Cataract surgery was performed in the right eye on [id number]. Postop Dx: Same Procedure: Phacoemulsification with posterior chamber toric intraocular lens implant left eye Surgeon: Dr. Rick Constantino Anesthesia: Monitored anesthesia care Complications: None Operative Indications: This is a 53-year-old F with progressive vision loss in the left eye due to 2-3+ nuclear sclerotic cataract. Best corrected visual acuity was 20/25 with glare to 20/630 vision in the left eye. Indications for surgery were: - Overall decrease in vision - Difficulty seeing words on a computer screen - Difficulty reading - Difficulty seeing words, closed captions, or game scores on TV - Difficulty seeing street signs - Difficulty driving in low light or at night - Difficulty driving at night because of headlights from other vehicles - Difficulty with glare or bright lights in any situation The patient was consented at length concerning the risks and benefits of cataract surgery after which the patient expressed a desire to proceed with surgery. Operative Procedure: The patients cornea was marked in the pre-surgical area to indicate the axis for the toric intraocular lens. The patient was taken into OR#3 and placed under monitored anesthesia care. A surgical time-out was conducted confirming correct patient, correct procedure, and correct surgical site. The patient was given topical anesthesia and then prepped and draped in the usual sterile fashion. The eye was entered at the 6 and 3 oclock positions. Intracameral Shugarcaine was injected into the anterior chamber followed by a dispersive viscoelastic. A continuous-tear curvilinear capsulorhexis was performed. The nucleus was hydrodissected and phacoemulsified. The cortex was evacuated using automated infusion and aspiration. A cohesive viscoelastic was injected into the capsular bag and a 20.0 diopter multifocal toric intraocular lens was inserted into the bag and rotated to axis 122. Infusion and aspiration were used to evacuate the viscoelastic materials from the eye and the IOL was verified to remain on axis. The wounds were hydrated and the eye inflated to physiologic pressure using balanced salt solution. Approximately 0.25ml of a mixture of triamcinolone and moxifloxacin was injected trans-sclerally into the vitreous in the inferotemporal quadrant using a 30 gauge cannula. An additional 0.25ml of a mixture of triamcinolone and moxifloxacin was injected subconjunctivally in the superior quadrant for infection and inflammation prophylaxis. Wound integrity was checked with Weck- Shira sponges and the IOL axis was once again verified to be on the correct axis. The patient was taken from the operating room in good condition and given post- op instructions.
[2024-01-20] MEDS ORDERED: fentaNYL 100 MCG/2 ML VIAL ONE (13:12)
--- NOTE | 2024-01-20 13:16 | ANESTHESIA POST OP EVALUATION ---
Anesthesia Post Eval - Post Anesthesia Eval Vitals: Last Vital Signs Temp 37.3 C 01/20/24 13:14 Pulse 76 01/20/24 13:14 Resp 16 01/20/24 13:14 BP 115/64 01/20/24 13:14 Pulse Ox 99 01/20/24 13:14 O2 Flow Rate CV Function Including HR & BP: Stable Pain Control: Additional Therapies Ordered (fentanyl 100mcg IV in pacu for c/o eye pain after toradol 30mg IV) Nausea & Vomiting: Negative Mental Status: Baseline Respiratory Status: Airway Patent Hydration Status: Satisfactory Anesthesia Complications: None
[2024-01-20 13:37] VITALS: BP 118/72; O2SAT 100
== END 2024-01-20 10:24 | disposition home or self-care (01) ==
LOC: SDS 10:23
PROVIDERS: ATTEND Ophthalmology
DX: H25.12 Age-related nuclear cataract, left eye (principal); E03.9 Hypothyroidism, unspecified; Z98.41 Cataract extraction status, right eye
CPT/HCPCS: 66984; A9270; J3490; J7120; V2632; V2787